=== PATIENT | male | born 1985 | race Caucasian/White ===

== ENCOUNTER 2024-07-31 09:37 | Emergency (ER) | payer SELFPAY ==
[2024-07-31] MEDS ORDERED: HYDROCODONE/APAP 5/325 MG TAB ONE (10:02)
[2024-07-31] MEDS ORDERED: KETOROLAC 30 MG/ML INJ ONE (10:02)
--- NOTE | 2024-07-31 11:03 | RAD REPORT ---
EXAMINATION: ULTRASOUND DUPLEX OF SCROTUM AND TESTICLES CLINICAL INDICATION: Testicular pain TECHNIQUE: Duplex scan of the scrotal contents was performed including real-time color and spectral D oppler ultrasonography with arterial inflow and venous outflow. COMPARISON: No prior exam. FINDINGS: Right testicle measures 5.6 x 2.9 x 2.8 cm with a normal echotexture. Normal blood flow. Left testicle measures 4.2 x 2.7 x 3.3 with a normal echotexture. Normal blood flow. Right epididymis normal in size and echotexture. Normal blood flow The left epididymis is enlarged with increased blood flow. Heterogeneous 2 cm structure is present within the left scrotum. IMPRESSION: Left epididymitis Heterogeneous 2 cm structure present within the left scrotum may represent an extratesticular hematom a.
--- NOTE | 2024-07-31 11:16 | ER ---
Nurse's Notes [facility] Name: Suman Cee Age: 38 yrs Sex: Male : 1985 Arrival Date: 07/31/2024 Time: 09:37 Bed 16 Private MD: Diagnosis: Contusion of scrotum and testes;Epididymitis Presentation: 07/31 09:46 Chief complaint: Patient states: "my dog jumped on my private parts a few days ago and aa5 then I also twisted wrong at work so I've been hurting". Pt reports pain to left testicle. 09:46 Method Of Arrival: Ambulatory aa5 09:46 Coronavirus screen: At this time, the client does not indicate any symptoms associated aa5 with coronavirus-19. Ebola Screen: Patient denies travel to an Ebola-affected area in the 21 days before illness onset. Initial Sepsis Screen: Does the patient meet any 2 criteria? No. Patient's initial sepsis screen is negative. Does the patient have a suspected source of infection? No. Patient's initial sepsis screen is negative. Risk Assessment: Do you want to hurt yourself or someone else? Patient reports no desire to harm self or others. Onset of symptoms was July 2024. 09:46 Acuity: MIKEY 3 aa5 Historical: - Allergies: 09:46 No Known Allergies; aa5 - PMHx: 09:46 None; aa5 - PSHx: 09:46 abdominal sx as an infant; aa5 - Immunization history:: Adult Immunizations unknown. - Infectious Disease History:: Denies. - Social history:: Smoking status: Patient reports the use of cigarette tobacco products. Screenin:53 [facility] Fall Risk Assessment (Adult) History of falling in the last 3 months, tm6 including since admission No falls in past 3 months (0 pts) Confusion or Disorientation No (0 pts) Intoxicated or Sedated No (0 pts) Impaired Gait No (0 pts) Mobility Assist Device Used No (0 pt) Altered Elimination No (0 pt) Score/Fall Risk Level 0 - 2 = Low Risk Oriented to surroundings, Maintained a safe environment, Educated pt \\T\\ family on fall prevention, incl call for assistance when getting out of bed. Abuse screen: Denies threats or abuse. Denies injuries from another. Nutritional screening: No deficits noted. Tuberculosis screening: No symptoms or risk factors identified. Assessment: 10:53 General: Appears in no apparent distress. Behavior is calm, cooperative. Pain: tm6 Complains of pain in groin Pain currently is 6 out of 10 on a pain scale. Neuro: Level of Consciousness is awake, alert, obeys commands, Oriented to person, place, time, situation. Cardiovascular: Patient's skin is warm and dry. Respiratory: Airway is patent Respiratory effort is even, unlabored, Respiratory pattern is regular, symmetrical. GI: No signs and/or symptoms were reported involving the gastrointestinal system. Abdomen is flat, non-distended. : Reports pain scrotum, testicle. EENT: No signs and/or symptoms were reported regarding the EENT system. Derm: No signs and/or symptoms reported regarding the dermatologic system. Musculoskeletal: Reports pain in groin. 11:26 Reassessment: Patient and/or family updated on plan of care and expected duration. Pain tm6 level reassessed. Patient is alert, oriented x 3, equal unlabored respirations, skin warm/dry/pink. Vital Signs: 09:46 BP 147 / 104; Pulse 87; Resp 18 S; Temp 97.5(TE); Pulse Ox 99% on R/A; Weight 70.31 kg aa5 (R); Height 5 ft. 8 in. (R); 10:53 BP 152 / 97; Pulse 88; Pulse Ox 97% on R/A; MAP 112 mmHg; tm6 11:25 BP 148 / 113; Pulse 84; Resp 19; Temp 97.5; Pulse Ox 99% on R/A; MAP 112 mmHg; Pain tm6 0/10; 09:46 Body Mass Index 23.57 (70.31 kg, 172.72 cm) aa5 11:25 Pain Scale: Adult tm6 ED Course: 09:40 Patient arrived in ED. ra3 09:41 Paulo Farr MD is Attending Physician. ec2 09:45 Christine Aiken, SEGUN is Primary Nurse. kc6 09:46 Arm band placed on. aa5 09:51 Triage completed. aa5 10:25 Scrotum Testicles US In Process Unspecified. EDMS 10:39 Nader Keys, RN is Primary Nurse. tm6 10:53 Patient has correct armband on for positive identification. Bed in low position. Call tm6 light in reach. Side rails up X 1. Provided Education on: use of call castillo. Client placed on continuous cardiac and pulse oximetry monitoring. NIBP monitoring applied. Pulse ox on. NIBP on. Door closed. Noise minimized. 11:16 Julien Malik MD is Referral Physician. ec2 11:26 No provider procedures requiring assistance completed. Patient did not have IV access tm6 during this emergency room visit. Administered Medications: 10:33 Drug: HYDROcodone-acetaminophen PO 5 mg-325 mg 2 tabs PO once Route: PO; kc6 11:22 Follow up: Response: No adverse reaction tm6 10:33 Drug: Ketorolac IM 30 mg IM once Route: IM; Site: left deltoid; kc6 11:22 Follow up: Response: No adverse reaction tm6 Medication: 10:53 VIS not applicable for this client. tm6 Outcome: 11:16 Discharge ordered by . ec2 11:26 Patient left the ED. tm6 11:26 Discharged to home ambulatory, with family, tm6 11:26 Condition: stable 11:26 Discharge instructions given to patient, family, Instructed on discharge instructions, follow up and referral plans. medication usage, Demonstrated understanding of instructions, follow-up care, medications, Prescriptions given X 2, Signatures: Dispatcher [employer] Lexy Apple RN RN [id number] Christine Aiken RN RN kc6 Paulo Farr MD MD ec2 Nader Keys RN RN tm6 Barbie Burrell 3
--- NOTE | 2024-07-31 11:16 | EDPHYS ---
Physician Documentation [facility] Name: Suman Cee Age: 38 yrs Sex: Male : 1985 Arrival Date: 07/31/2024 Time: 09:37 Bed 16 Private MD: ED Physician Paulo Farr HPI: 07/31 09:56 This 38 yrs old Male presents to ER via Ambulatory with complaints of ec2 Testicular Pain. 09:56 Patient arrives today for evaluation of left testicular pain. Reports that he had ec2 injured his left testicle when his dog jumped on him several days ago. States that he also twisted abnormally today at work which caused increased pain. Pain with ambulation. Pain with gravity. Patient reports otherwise no other concerns, no chronic medical problems.. Historical: - Allergies: 09:46 No Known Allergies; aa5 - PMHx: 09:46 None; aa5 - PSHx: 09:46 abdominal sx as an infant; aa5 - Immunization history:: Adult Immunizations unknown. - Infectious Disease History:: Denies. - Social history:: Smoking status: Patient reports the use of cigarette tobacco products. ROS: 09:56 Constitutional: as per hpi ec2 Exam: 09:56 Constitutional: GEN: NAD Head: atraumatic Eyes: EOMI Ears: External ears are ec2 normal. CV: regular rate LUNGS: no respiratory distress ABD: non-distended. : Scrotal examination revealing for significant left testicle swelling and TTP, intact cremasteric reflex bilaterally. SKIN: no evidence of rashes MSK: no evidence of trauma Vital Signs: 09:46 BP 147 / 104; Pulse 87; Resp 18 S; Temp 97.5(TE); Pulse Ox 99% on R/A; Weight 70.31 kg aa5 (R); Height 5 ft. 8 in. (R); 10:53 BP 152 / 97; Pulse 88; Pulse Ox 97% on R/A; MAP 112 mmHg; tm6 11:25 BP 148 / 113; Pulse 84; Resp 19; Temp 97.5; Pulse Ox 99% on R/A; MAP 112 mmHg; Pain tm6 0/10; 09:46 Body Mass Index 23.57 (70.31 kg, 172.72 cm) aa5 11:25 Pain Scale: Adult tm6 MDM: 09:55 Medical Screening Exam initiated ec2 09:56 Data reviewed: vital signs, nurses notes. ED course: Patient arrives today for scrotal ec2 pain and swelling with examination revealing for findings as above. Will treat the patient's pain and obtain scrotal ultrasound. Suspect testicular contusion, additionally considered other processes such as torsion, epididymitis. 11:11 ED course: Ultrasound shows hematoma along with epididymitis. Will send patient ec2 antibiotics and instruct him on scrotal support.. 07/31 09:55 Order name: Scrotum Testicles US; Complete Time: 11:11 ec2 Administered Medications: 10:33 Drug: HYDROcodone-acetaminophen PO 5 mg-325 mg 2 tabs PO once Route: PO; kc6 11:22 Follow up: Response: No adverse reaction tm6 10:33 Drug: Ketorolac IM 30 mg IM once Route: IM; Site: left deltoid; kc6 11:22 Follow up: Response: No adverse reaction tm6 Disposition Summary: 07/31/24 11:16 Discharge Ordered Notes: Location: Home ec2 Condition: Stable ec2 Diagnosis - Contusion of scrotum and testes ec2 - Epididymitis ec2 Followup: ec2 - With: Julien Malik MD - When: - Reason: Recheck today's complaints Discharge Instructions: - Discharge Summary Sheet ec2 - Epididymitis ec2 - Scrotal Hematoma ec2 Forms: - Medication Reconciliation Form ec2 - Antibiotic Education ec2 - Prescription Opioid Use ec2 - Patient Portal Instructions ec2 - Leadership Thank You Letter ec2 Prescriptions: - acetaminophen-codeine 300-30 mg Oral tablet - take 1 tablet ORAL route every 6 hours as needed for pain; 10 tablet; Refills: ec2 0, Product Selection Permitted - levofloxacin 500 mg Oral tablet - take 1 tablet ORAL route once daily for 10 days; 10 tablet; Refills: 0, Product ec2 Selection Permitted Signatures: Dispatcher [employer] Lexy Apple RN RN aa5 Christine Aiken RN RN kc6 Paulo Farr MD MD ec2 Nader Keys RN tm6 Corrections: (The following items were deleted from the chart) 10:57 10:57 Urinalysis W/Microscopic+U.LAB.BRZ ordered. EDMS EDMS
[2024-07-31 13:37] VITALS: TEMP 97.5
[2024-07-31 13:40] VITALS: BP 148/113; O2SAT 99
== END 2024-07-31 11:26 | disposition home or self-care (01) ==
LOC: ER 09:37
DX: S30.22XA Contusion of scrotum and testes, initial encounter (principal); N50.812 Left testicular pain; N45.1 Epididymitis; F17.210 Nicotine dependence, cigarettes, uncomplicated; W54.1XXA Struck by dog, initial encounter; Y93.89 Activity, other specified; Y92.9 Unspecified place or not applicable
CPT/HCPCS: 76870; 96372; 99284

== ENCOUNTER 2025-05-02 17:20 | Emergency (ER) | payer SELFPAY ==
--- OUTSIDE RECORDS SUMMARY | 2025-05-02 18:04 | XMS REPORT | Continuity of Care Document ---
Author Name Unknown Address [address] [facility] [place] [address] [facility] [place] Address [address] [facility] [place] [address] Care Team Providers Care Preconstruction Manager Name Role Phone Pcp, Patient Does Not Have A Primary Care Physic susu GUU_SHENG_YAW Attending Clinician Unavailable Yao CAST, Micaela Johnson Attending Clinician Yumiko Stock LVN Attending Clinician [phone] REINA GRIMALDO Attending Clinician Unavail sanjeev Chu MD, Jose Ruiz Attending Clinician + [phone] Jared Sands MD, Victor J Attending Clinician + Reina Grimaldo MD Attending Clinician KENYU_SHENG_YAW Admitting Clinician Unavailable NICOLA COLEMAN JR Admitting Clinician Kathryn Coleman Jr., MD, Victor J Admitting Clinician + Problems Condition Name Condition Details Condition Category Status Onset Date Resolution Date Last Treatment Date Treating Clinician Comments Source Rhabdomyol ysis Rhabdomyol ysis Disease Active 12-20 00:00: 00 [facility] Allergies, Adverse Reactions, Alerts Allergy Name Allergy Type Status Severity Reaction(s) Onset Date Inactive Date Treating Clinician Comments Source NO KNOWN ALLERGIE S Drug Class Active [facility] Social History Social Habit Start Date Stop Date Quantity Comments Source History of tobacco use Cigarette Smoker [facility] Exposure to SARS-CoV-2 (event) 2021-11-22 00:00:00 2021-12-22 10:22:00 Not sure [facility] Alcohol intake 2021-12-22 00:00:00 2021-12-22 00:00:00 Ex-drinker (finding) [facility] Cigarettes smoked current (pack per day) - Reported 2021-12-20 00:00:00 2021-12-20 00:00:00 [facility] Cigarette pack-years 2021-12-20 00:00:00 2021-12-20 00:00:00 [facility] Tobacco use and exposure 2021-12-20 00:00:00 2021-12-20 00:00:00 Never used [facility] Sex Assigned At 1985 00:00:00 1985 00:00:00 [facility] Smoking Status Start Date Stop Date Source Current every day smoker 2021-12-20 00:00:00 [facility] Medications Ordered Medication Name Filled Medication Name Start Date Stop Date Current Medication? Ordering Clinician Indication Dosage Frequency Signature (SIG) Comments Components Source lisinopriL 5 mg tablet 12-25 00:00: 00 03-26 04:59 :00 No [id number] 5mg Take 1 tablet by mouth daily for 90 days. [facility] pantoprazol e 40 mg EC tablet 12-25 00:00: 00 03-26 04:59 :00 No [id number] 40mg Take 1 tablet by mouth daily for 90 days. [facility] pantoprazol e (PROTONIX) EC tablet 40 mg 12-24 16:00: 00 Yes 40mg 40 mg, Oral, DAILY, First dose on Wed12/24/21 at 1100, Until Discontinu ed, Routine [facility] KCL (KLOR-CON M20) tablet 40 mEq 12-24 15:00: 00 12-24 16:09 :00 No 40meq 40 mEq, Oral, Q2H, 1 dose, First dose (after last modificati on) on Wed12/24/21 at 1000, Routine [facility] lisinopriL (PRINIVIL,Z ESTRIL) tablet 5 mg 12-24 14:00: 00 Yes 5mg 5 mg, Oral, DAILY, First dose on Wed12/24/21 at 0900, Until Discontinu ed, Routine [facility] foLIC acid (FOLATE) tablet 1 mg 12-24 14:00: 00 Yes 1mg 1 mg, Oral, DAILY, First dose on Wed12/24/21 at 0900, Until Discontinu ed, Routine [facility] thiamine (VITAMIN B1) tablet 100 mg 12-24 14:00: 00 Yes 100mg 100 mg, Oral, DAILY, First dose on Wed12/24/21 at 0900, Until Discontinu ed, Routine [facility] magnesium sulfate in water 2 gram/50 mL (4 %) infusion 2 g 12-24 14:00: 00 12-24 14:26 :00 No 2g 2 g, IV Piggyback, Administer over 60 Minutes, ONCE, 1 dose, On Wed12/24/21 at 0900, Routine [facility] KCL (KLOR-CON M20) tablet 40 mEq 12-24 13:00: 00 12-24 14:22 :29 No 40meq 40 mEq, Oral, Q2H, 3 doses, First dose on Wed12/24/21 at 0800, Last dose on Wed12/24/21 at 1200, Routine [facility] gadoteridol (PROHANCE-2 0 mL) injection 17.5 mL 12-24 05:30: 00 12-24 05:03 :00 No [id number] .2mL/kg 17.5 mL (0.2 mL/kg ?87.5 kg), Intravenou s, ONCE, 1 dose, On Wed12/24/21 at 0030, Routine [facility] NaCl 0.9% (NS) IV infusion 1,000 mL 12-23 19:45: 00 12-24 12:55 :53 No 1000mL at 150 mL/hr, IV Infusion, CONTINUOUS , Starting on Wed12/23/21 at 1445, Until Wed12/24/21 at 0755, Routine [facility] atropine injection 0.4 mg 12-23 11:37: 35 Yes .4mg 0.4 mg, IV Push, PRN, Starting on Wed12/23/21 at 0637, Until Discontinu ed, Routine, Symptomati c Bradycardi a [facility] KCL (KLOR-CON M20) tablet 40 mEq 12-23 09:54: 00 12-23 11:11 :00 No 40meq 40 mEq, Oral, ONCE, 1 dose, On Wed12/23/21 at 0500, Routine [facility] benzonatate (TESSALON PERLES) capsule 200 mg 12-23 01:00: 00 Yes 200mg 200 mg, Oral, TID, First dose on Wed12/22/21 at 2000, Until Discontinu ed, Routine [facility] guaiFENesin 100 mg/5 mL solution 200 mg 12-22 23:00: 00 Yes 200mg 200 mg, Oral, Q6H WHILE AWAKE, First dose on Wed12/22/21 at 1800, Until Discontinu ed, Routine [facility] acetaminoph en (TYLENOL) tablet 650 mg 12-22 18:53: 08 Yes 650mg 650 mg, Oral, Q6HPRN, Starting on Wed12/22/21 at 1353, Until Discontinu ed, Routine, Pain (scale 1-3), Temp > 38.5 C [facility] NaCl 0.9% (NS) bolus infusion 1,000 mL 12-22 11:30: 00 12-22 13:17 :00 No 1000mL at 999 mL/hr, 1,000 mL, IV Piggyback, ONCE, 1 dose, On Wed12/22/21 at 0630, AMINA [facility] sodium phosphate 15 mmol in NaCl 0.9% (NS) 250 mL piggyback 12-22 11:30: 00 12-22 15:37 :00 No 15mmol 15 mmol, IV Piggyback, ONCE, 1 dose, On Wed12/22/21 at 0630, Administer over 4 Hours, 250 mL [facility] heparin (porcine) injection 5,000 Units 12-21 13:00: 00 Yes 5000U 5,000 Units, Subcutaneo us, Q12H, First dose on Wed12/21/21 at 0800, Until Discontinu ed, Routine [facility] midazolam (VERSED) injection 2 mg 12-21 09:45: 00 12-21 08:40 :00 No 2mg 2 mg, IV Push, ONCE, 1 dose, On Wed12/21/21 at 0445, Routine [facility] vancomycin 1,250 mg in NaCl 0.9% (NS) 250 mL VIAL-MATE IV piggyback 12-21 07:15: 00 12-21 23:54 :13 No 15mg/kg 1,250 mg (rounded from 1,335 mg = 15 mg/kg ?89 kg), IV Piggyback, Q8H ABX, First dose on Wed12/21/21 at 0215, Until Discontinu ed, Administer over 90 Minutes, 250 mL
Reas on for Anti-Infec tive: Empiric Therapy for Suspected Infection< br>Empiric Therapy Site: Blood
D uration of therapy: 7 days [facility] meropenem (MERREM) 1,000 mg in NaCl 0.9% (NS) 50 mL MINI-BAG 12-21 06:04: 00 12-21 23:54 :13 No 1000mg 1,000 mg, IV Piggyback, Q8H ABX, First dose on Wed12/21/21 at 0115, Until Discontinu ed, Administer over 3 Hours, 50 mL
Rest ricted use approved by: [address] FLOOR
R anne-marie for Anti-Infec tive: Empiric Therapy for Suspected Infection< br>Empiric Therapy Site: Blood
D uration of therapy: 7 days [facility] midazolam (VERSED) injection 2 mg 12-21 05:20: 00 12-21 05:23 :00 No 2mg 2 mg, IV Push, ONCE, 1 dose, On 12/21/21 at 0030, Routine [facility] NaCl 0.9% (NS) IV infusion 1,000 mL 12-21 04:15: 00 12-23 19:37 :31 No 1000mL at 200 mL/hr, IV Infusion, CONTINUOUS , Starting on 12/20/21 at 2315, Until 12/23/21 at 1437, Routine [facility] NaCl 0.9% (NS) bolus infusion 500 mL 12-21 03:51: 00 12-21 04:05 :00 No 500mL at 999 mL/hr, 500 mL, IV Piggyback, ONCE, 1 dose, On 12/20/21 at 2300, AMINA [facility] NaCl 0.9% (NS) IV infusion 1,000 mL 12-21 03:15: 00 12-21 04:07 :13 No 1000mL at 125 mL/hr, IV Infusion, CONTINUOUS , Starting on 12/20/21 at 2215, Until 12/20/21 at 2307, Routine [facility] midazolam (VERSED) STD 50mg in NaCl 0.9% (NS) 50 mL infusion RTU 12-21 02:56: 00 12-22 00:16 :57 No 1mg/h 1-10 mg/hr (1-10 mL/hr), IV Infusion, TITRATE, Sedation-R ASS score (0 to -1), Starting on 12/20/21 at 2156
In itiate infusion at 1 mg/hr and titrate by 1 mg/hr every 3 minutes to 10 minutes to goal sedation score. Maximum dose = 10 mg/hr.&nbs p; If goal not maintained at maximum allowed dose, contact prescriber .
[facility] dexMEDEtomi dine 400 mcg in 0.9 % NaCl 100 mL (PRECEDEX) RTU IV infusion 12-21 02:46: 06 12-21 08:39 :23 No .2ug/kg /h 0.2-1.5 mcg/kg/hr ?97 kg (4.85-36.3 75 mL/hr, rounded to 4.85-36.38 mL/hr), IV Infusion, TITRATE, Sedation-R ASS score (0 to -1), Starting on 12/20/21 at 2146
In itiate infusion at 0.2 mcg/kg/hr and titrate by 0.1 mcg/kg/hr every 30 minutes to goal sedation score. Maximum dose = 1.5 mcg/kg/hr. If goal not maintained at maximum allowed dose, contact prescriber .
[facility] propofoL IV infusion 12-21 02:45: 18 12-22 00:16 :57 No 5ug/kg/ min 5-50 mcg/kg/min ?97 kg (2.91-29.1 mL/hr), IV Infusion, TITRATE, Sedation-R ASS score (0 to -1), Starting on 12/20/21 at 2145
In itiate infusion at 5 mcg/kg/min and titrate by 5 mcg/kg/min every 30 seconds to 10 minutes to goal sedation score. Maximum dose = 50 mcg/kg/min . If goal not maintained at maximum allowed dose, contact prescriber . &nbs p;Tubing and unused portions of vials should be discarded after 12 hours.
[facility] Vital Signs Vital Name Observation Time Observation Value Comments S antonia Systolic blood pressure 2021-12-24 16:43:00 145 mm[Hg] [facility] Diastolic blood pressure 2021-12-24 16:43:00 99 mm[Hg] [facility] Heart rate 2021-12-24 16:43:00 82 /min [facility] Body temperature 2021-12-24 16:43:00 36.5 Mabel [facility] Respiratory rate 2021-12-24 16:43:00 18 /min [facility] Oxygen saturation in Arterial blood by Pulse oximetry 2021-12-24 16:43:00 96 /min [place] [facility] Body weight 2021-12-22 03:00:00 87.544 kg [facility] BMI 2021-12-22 03:00:00 28.50 kg/m2 [facility] Body height 2021-12-21 01:30:00 175.3 cm [facility] Procedures Procedure Date / Time Performed Performing Clinician Source MAGNESIUM 2021-12-24 13:35:00 Paul Escalante [facility] BASIC METABOLIC PANEL (NA, K , CL, CO2, GLUCOSE, BUN, CREATININE, CA) 2021-12-24 13:35:00 Paul Escalante [facility] MAGNESIUM 2021-12-24 09:56:00 Santy [facility] BASIC METABOLIC PANEL (NA, K , CL, CO2, GLUCOSE, BUN, CREATININE, CA) 2021-12-24 09:56:00 Santy [facility] MR BRAIN W WO CONTRAST 2021-12-24 05:10:00 Santy [facility] PHOSPHORUS 2021-12-23 08:45:00 [facility] CREATINE KINASE 2021-12-23 08:45:00 Paul Escalante [facility] MAGNESIUM 2021-12-23 08:45:00 Santy [facility] VITAMIN B12, LEVEL 2021-12-23 08:45:00 Santy [facility] FOLATE 2021-12-23 08:45:00 Santy [facility] BASIC METABOLIC PANEL (NA, K , CL, CO2, GLUCOSE, BUN, CREATININE, CA) 2021-12-23 08:45:00 Boris Paul [facility] CBC WITH DIFF 2021-12-23 08:45:00 Santy [facility] HEPATITIS C VIRUS (HCV) BY QUANTITATIVE NAAT 2021-12-23 08:45:00 Jagjit Jenkins [facility] ELECTROENCEPHALOGRAM 2021-12-23 00:00:00 Wade Garcia [facility] POCT GLUCOSE (AUTOMATED) 2021-12-22 16:48:00 Jose Chu [facility] CT HEAD WO CONTRAST 2021-12-22 15:04:47 Jagjit Jenkins [facility] CT CERVICAL SPINE WO CONTRAST 2021-12-22 15:04:24 Jagjit Jenkins [facility] FECAL PATHOGENS BY PCR 2021-12-22 13:58:00 Jagjit Jenkins [facility] PHOSPHORUS 2021-12-22 08:02:00 Jagjit Jenkins [facility] CREATINE KINASE 2021-12-22 08:02:00 Yamel Murillo [facility] MAGNESIUM 2021-12-22 08:02:00 Yamel Murillo [facility] BASIC METABOLIC PANEL (NA, K , CL, CO2, GLUCOSE, BUN, CREATININE, CA) 2021-12-22 08:02:00 Yamel Murillo [facility] CBC WITH DIFF 2021-12-22 08:02:00 [facility] GLYCOSYLATED HEMOGLOBIN (A1C) 2021-12-22 08:02:00 Christa Solomon [facility] POCT GLUCOSE (AUTOMATED) 2021-12-22 05:53:00 Jose Chu [facility] POCT GLUCOSE (AUTOMATED) 2021-12-21 22:16:00 Jose Chu [facility] CYTO SPINAL FLUID 2021-12-21 17:51:00 Christa Solomon [facility] CREATINE KINASE 2021-12-21 16:52:00 Yamel Murillo [facility] HEPATIC FUNCTION PANEL ([id number]) (ALB,T.PRO,BILI T,BU/BC,ALT,AST,ALK PHOS) 2021-12-21 16:52:00 Jagjit Jenkins [facility] BASIC METABOLIC PANEL (NA, K , CL, CO2, GLUCOSE, BUN, CREATININE, CA) 2021-12-21 16:52:00 Yamel Murillo [facility] IRON PANEL 2021-12-21 16:52:00 Paul Escalante [facility] ANTI-NUCLEAR ANTIBODY SCREEN 2021-12-21 16:52:00 Christa Solomon [facility] POCT GLUCOSE (AUTOMATED) 2021-12-21 16:52:00 Jose Chu [facility] EXTRA TUBE SST 2021-12-21 16:52:00 Nicola Coleman [facility] GALV ONLY - SYPHILIS IGG/IGM 2021-12-21 16:52:00 Christa Solomon [facility] ANTI-NUCLEAR ANTIBODY-PATHOLOGIST INTERPRETATION 2021-12-21 16:52:00 Christa Solomon [facility] US ABDOMEN LIMITED 2021-12-21 14:30:33 Christa Solomon [facility] AC PANEL 20 + LACTIC ACID 2021-12-21 13:49:00 Christa Solomon [facility] POCT GLUCOSE (AUTOMATED) 2021-12-21 10:57:00 Jose Chu [facility] MENINGITIS/ENCEPHALITIS PANE L BY PCR 2021-12-21 05:55:00 Radha Flood [facility] CEREBROSPINAL FLUID PROTEIN 2021-12-21 05:51:00 Christa Solomon [facility] CEREBROSPINAL FLUID GLUCOSE 2021-12-21 05:51:00 [facility] BODY FLUID DIRECT COUNT 2021-12-21 05:51:00 [facility] CSF CULTURE 2021-12-21 05:51:00 Christa Solomon [facility] POCT GLUCOSE (AUTOMATED) 2021-12-21 04:22:00 Jose Chu [facility] SERUM DRUG (IMMUNOASSAY) - COMPREHENSIVE DRUG SCREEN 2021-12-21 04:04:00 Christa Solomon [facility] HEPATITIS B SURFACE ANTIBODY 2021-12-21 04:04:00 Christa Solomon [facility] HEPATITIS B SURFACE ANTIGEN 2021-12-21 04:04:00 Christa Solomon [facility] HCV ANTIBODY 2021-12-21 04:04[facility] IGM 2021-12-21 04:04[facility]00 [facility] VIRUS (HCV) BY QUANTITATIVE NAAT 2021-12-21 04:04:00 Christa Solomon [facility] HIV 1/2 AG-AB WITH REFLEX 2021-12-21 04:04:00 Juanito [facility] XR CHEST 1 VW 2021-12-21 03:40:00 Juanito [facility] BLOOD CULTURE SCREEN 2021-12-21 03:26:00 Juanito [facility] URINE DRUG (IMMUNOASSAY) - COMPREHENSIVE DRUG SCREEN 2021-12-21 03:26:00 Juanito [facility] URINALYSIS 2021-12-21 03:26:00 Juanito [facility] URINE DRUG (LCMSMS) - SYNTHETIC OPIATES PANEL 2021-12-21 03:26:00 Juanito [facility] BLOOD CULTURE SCREEN 2021-12-21 03:25:00 Juanito [facility] AC PANEL 20 + LACTIC ACID 2021-12-21 03:24:00 Juanito [facility] HB ECG ROUTINE & RHYTHM STRIP 2021-12-21 03:00:50 Juanito [facility] COVID-19 (ID NOW RAPID TESTING) 2021-12-21 02:51:00 Juanito [facility] LAB ONLY COVID INTERPRETATION 2021-12-21 02:51:00 Juanito [facility] PHOSPHORUS 2021-12-21 02:48:00 Juanito [facility] LACTATE DEHYDROGENASE 2021-12-21 02:48:00 Juanito [facility] CREATINE KINASE 2021-12-21 02:48:00 Juanito [facility] MAGNESIUM 2021-12-21 02:48:00 Juanito [facility] FERRITIN SERUM 2021-12-21 02:48:00 Juanito [facility] VITAMIN B12, LEVEL 2021-12-21 02:48:00 Juanito [facility] FOLATE 2021-12-21 02:48:00 Juanito [facility] HEPATIC FUNCTION PANEL (45504) (ALB,T.PRO,BILI T,BU/BC,ALT,AST,ALK PHOS) 2021-12-21 02:48:00 Juanito [facility] BASIC METABOLIC PANEL (NA, K , CL, CO2, GLUCOSE, BUN, CREATININE, CA) 2021-12-21 02:48:00 Christa Solmoon [facility] CBC WITH DIFF 2021-12-21 02:48:00 Christa Solomon [facility] PROTHROMBIN TIME / INR 2021-12-21 02:48:00 Christa Solomon [facility] ACTIVATED PARTIAL THRMPLAS MELVA 2021-12-21 02:48:00 Christa Solomon [facility] Encounters Start Date/Time End Date/Time Encounter Type Admission Type Attending [facility] Facility Care Department Encounter ID Source 2023-12-09 00:00:00 2023-12-09 00:00:00 Outpatient GUU_SHENG_Y [facility] [id number] [facility] 2022-02-25 00:00:00 2022-02-25 00:00:00 Patient Outreach Micaela Samayoa [facility] [id number] [facility] 2022-02-24 00:00:00 2022-02-24 00:00:00 Patient Outreach Micaela Samayoa MITZI ROBERSON [id number] [id number] [id number] [facility] 2021-12-26 00:00:00 2021-12-26 00:00:00 Patient Outreach Micaela Smaayoa [facility] ROBERSON [id number] [id number] [id number] [facility] 2021-12-25 00:00:00 2021-12-25 00:00:00 Transition of Care Yumiko Stock [id number] [id number] [id number] [facility] 2021-12-25 00:00:00 2021-12-25 00:00:00 Transition of Care Yumiko Stock 1..840.114 [id number] 4.2.7.2.686 [id number] [facility] 2021-12-20 20:29:00 2021-12-24 17:56:00 Inpatient U REINA GRIMALDO [facility] [id number] [facility] 2021-12-20 20:29:00 2021-12-24 17:56:00 Hospital Encounter Jose Chu, Reina Bell [facility] 1..840.114 350.1.13.10 4.2.7.2.686 [id number] [facility] Results Test Description Test Time Test Comments Results Result Co mments Source [facility] (NA, K, CL, CO2, GLUCOSE, BUN, CREATININE, CA)2021-12-24 14:15:49* Test Item Value Reference Range Interpretation Comme nts NA (test code = 5350886651) 140 mmol/L 135-145 K (test code = 6741647183) 3.4 mmol/L 3.5-5.0 L Slight hemolysis CL (test code = 3183522577) 111 mmol/L 98-108 H CO2 TOTAL (test code = 5844299272) 22 mmol/L 23-31 L AGAP (test code = 6527007373) 2-16 BUN (test code = 7094534351) 5 mg/dL 7-23 L Slight hemolysis GLUCOSE (test code = 7736715312) 97 mg/dL 70-110 CREATININE (test code = 7773194010) 0.52 mg/dL 0.60-1.25 L CALCIUM (test code = 7115084073) 7.6 mg/dL 8.6-10.6 L eGFR (test code = 0031223169) mL/min/1.73m2 MARK ANTHONY (test code = MARK ANTHONY) Association of Glomerular Filtration Rate (GFR) and Staging of Kidney Disease* + -----+ --------+ +| GFR (mL/min/1.73 m2) ?| With Kidney Damage ?| ?Without Kidney Damage+ +------- +---- --+| ?>90 ?| ?Stage one ?| ? Normal ?+ ------+ ---------+--------- +| ?60-89 ?| ?Stage two ?| ? Decreased GFR ? + -----+ --------+ +| ?30-59 ?| ?Stage three ?| ? Stage three ? + -----+ --------+ +| ?15-29 ?| ?Stage four ? | ? Stage four ?+ ------+ ---------+--------- +| ?<15 (or dialysis) ? ?| ?Stage five ? | ? Stage five ?+ ------+ ---------+--------- + *Each stage assumes the associated GFR level has been in effect for at least three months. ?Stages 1 to 5, with or without kidney disease, indicate chronic kidney disease. Notes: Determination of stages one and two (with eGFR >59mL/min/1.73 m2) requires estimation of kidney damage for at least three months as defined by structural or functional abnormalities of the kidney, manifested by either:Pathological abnormalities or Markers of kidney damage (including abnormalities in the composition of the blood or urine or abnormalities in imaging tests). Lab Interpretation (test code = 03004-0) [facility]normal [facility]OLIC [facility] (NA, K, CL, CO2, GLUCOSE, BUN, CREATININE, CA)2021-12-24 12:54:14* Test Item Value Reference Range Interpretation Comme nts NA (test code = 4361663652) 143 mmol/L 135-145 K (test code = 5194053478) 2.4 mmol/L 3.5-5.0 LL CL (test code = 1037108824) 118 mmol/L 98-108 H CO2 TOTAL (test code = 7739544167) 22 mmol/L 23-31 L AGAP (test code = 1235991360) 2-16 BUN (test code = 3373790317) 5 mg/dL 7-23 L GLUCOSE (test code = 5921914169) 89 mg/dL 70-110 CREATININE (test code = 4987639239) 0.47 mg/dL 0.60-1.25 L CALCIUM (test code = 4362272711) 6.0 mg/dL 8.6-10.6 L eGFR (test code = 9426291655) mL/min/1.73m2 MARK ANTHONY (test code = MARK ANTHONY) Association of Glomerular Filtration Rate (GFR) and Staging of Kidney Disease* + --+ --+ ------+| GFR (mL/min/1.73 m2) ?| With Kidney Damage ?| ?Without Kidney Damage+ --------+ --------+ +| ?>90 ?| ?Stage one ?| ? Normal ?+ ---+ ---+ -------+| ?60-89 ?| ?Stage two ?| ? Decreased GFR ? + --+ --+ ------+| ?30-59 ?| ?Stage three ?| ? Stage three ? + --+ --+ ------+| ?15-29 ?| ?Stage four ? | ? Stage four ?+ ---+ ---+ -------+| ?<15 (or dialysis) ? ?| ?Stage five ? | ? Stage five ?+ ---+ ---+ -------+ *Each stage assumes the associated GFR level has been in effect for at least three months. ?Stages 1 to 5, with or without kidney disease, indicate chronic kidney disease. Notes: Determination of stages one and two (with eGFR >59mL/min/1.73 m2) requires estimation of kidney damage for at least three months as defined by structural or functional abnormalities of the kidney, manifested by either:Pathological abnormalities or Markers of kidney damage (including abnormalities in the composition of the blood or urine or abnormalities in imaging tests). Lab Interpretation (test code = 36986-0) [facility] 12:41:20* Test Item Value Reference Range Interpretation Comme nts MAGNESIUM (test code = 3349990849) 1.5 mg/dL 1.7-2.4 L Lab Interpretation (test cod e = 10816-6) [facility]normal [facility], [id number] 21:36:30* Test Item Value Reference Range Interpretation Comme nts VIT B12 (test code = 6460790656) 681 pg/mL 240-930 MARK ANTHONY (test code = MARK ANTHONY) Biotin has been reported to cause a positive bias, interpret results relative to patient's use of biotin. Lab Interpretation (test code = 59810-4) Normal [facility] 16:28:12* Test Item Value Reference Range Interpretation Comme nts FOLATE SER (test code = 3321711040) 16.1 ng/mL 3.0-20.0 Lab Interpretation (test cod e = 94578-3) Normal [facility] [id number] 15:47:46* Test Item Value Reference Range Interpretation Comme nts CK (test code = 1624271320) 4092 U/L 33-194 H Lab Interpretation (test cod e = 37638-2) Abnormal [facility] SPINAL [id number] 15:20:45* Test Item Value Reference Range Interpretation Comme nts Case Report (test code = 6536401633) Non-Gynecologic Cytology ?Case: [id number] ?Authorizing Provider: ?Jose Chu MD ? ?Collected: ? 12/21/2021 1251 ?Ordering Location: ? ? Medical Intensive Care ? ? Received: ?12/21/2021 0115 ? Unit ([facility] [address]) ?Specimen: ? ?CEREBRAL SPINAL FLUID ? Final Diagnosis (test code = 2154609456) p4oxtNYuHXJqi4qkLQGla GFuZzEwMzNcZnRuYmpcdW MxIHtccnRmMVxlcGljOTY zEFjluiGmSWPzeQVmA4Ox yivzLOipKG4nWR2aoEizy GEpyRXlNCHdOuPzl2lji5 53yKFvo7yqSEVVqtecoIy 4yXjlR19qt1P0OujyE43u pELqNKX1AKIjOVDpaCUoS GFiUHT4SVHkoUKeT2roQU AgMN4mdviwBFqvYTgyWJD xkRA3VOGugCQoC0XwUXXk UYvpORGemqj8LqRhHe1qi GVyeTcyMFxwYXJkXHBsYW luXGZzMjBccGFyXGIgQS4 gW5DLGSXOY5LOGF6XKLUU TFVJRDpccGFyICAgICAgL QFCEWbBLKaQAOTQJ0CxEH GCLNaTTH7UBBTPMHtMLOs WMPBxP94BKZBOMRvncMMn XGIwICBccGFyXGZzMjIgS pLjzSUfZ2WyLJDvV9hrHA 8HJLH0PlI7PqOtHzCrXJM mDjQ5JVLSPLYmjfwffiFu LMSswy05ZNH4QmKhm8G7C GNeTmWzWTYpVH6kzJwwIE KnRD1sPTJsH7oxdV3unzf 0TnYiAZEkIiX4XYGrkvP0 Ckk2QKXrHDrni0nvl2GoM 0JkbPJhcSn7f6fjBBHgUa X6gZOgCArfN9aeqiLjbCS dZXMoYGf2wKcsQzOdAVUo n8vwtsKwYmSpZYBxAPEmK QJxzEtymug0iY10NTKpvB 3kfFWzSQswqzIuCwW5ZDm fBCMtRaJ1UFZjzUPpUBAu F0xeOFLaKJxpNCDwGNqrf RYpLSE6gAulq5F7nPFrzQ PhpZatTkZhDyCgQZFIc6L hNYt2yPouY4ZnMFNdCoS9 bHQgUGFyYWdyYXBoIEZvb gR8oF35GAqoevY2pXHbk1 Lmw53ek632hE1ihSEeCKY 1JJKeXSJwhLYcGNSzCTZ2 EQNufFOrX8skTRLiZL4xg egfGSomLOtiUAKalVJ8XP WeoXPdA2QqMCIcCBjzBQI dzvf2BiLkDp8tqISrxKqp NNfad4wsj8qdbEOwWsz0P DBbXaHjZpanSIbxa3Vyx9 yqMPSknr4uCWL8oWWnzYz co2Y5kXNiDAJgvXDtlbLu IGClDeC6JLabTT0aqi41H EHwPKW3la1ktETwbGpsuq RuaLJlOXadP5MbICOeh74 0JACaW8QoNEErl9D0kxTr LsEeRYMajDC1cfK0EOUrC Hv4kBUqvdS2rcZkbDAvS5 viwH8oBGVaXD0urrbwv8d kUHtjJCxpDYAouMT1jbL2 PKHgsKVsK6AzkA1kYSYzR LbhNPHumcv0IrGsKo6jrP VyeTcyMFxzYmtwYWdlXHB nbmNvbnRccGduZGVjXHBs YWluXHBsYWluXGYwXGZzM hXejKsyrQbpbZ0tAeOgIk QcITvlEY5rCLCcD4tcuTA zRIRmJUPeD4keTaActC6x aFxmMVxjZjJcZnMyMFxwY XIgSSBoYXZlIHBlcnNvbm CngMwugnZ8nWC8NMKjFOa kBAExKNFuwMTkqw8ujJao SAEiMC0mOKXmiwXrUTbxv PprHVchSQT1HEQzjPHuxA MgbWFkZSBieSByZXNpZGV ckTBsETKvfXlgh2Iqt1Qy yCB7fO9lj2fjd9EeAXCcz EU1CU36qcC1jE1uQVJmDY 4pNITrDD0meYCevOXpFOE fy17zvBbtphKiENHimhIg XHBsYWluXGYyXGZzMjhcb GFuZzEwMzNcaGljaFxmMl uvAvSwLAEtAXhtJ7mwQzL pUqXaGCkjJHN0nW== Final Diagnosis Comment (test code = 1929615569) w9iznOLvBYXyfCG5RhLdD UIvd0ebr5JlbVDgsVHgKQ tsbNThdwRtko25mVM4pE5 7WZ4mZFIbNwW5TLMluaU6 Xno5WXCvFIBlsKAoV617v 7sjx8dnvoOezWH3jBwyCI JeiovrPtM1FIizTLMfcnz dCFe5PYzhYCDstWY0DNPz cSOgI5QoIWKkUM0xuzf8I JE8NAnpCBRkDzB3OAEkzW RsJPWtvUnfPXznx739JYO 2YgIdBYYytiGdjKindC6t FuBuJKjnYENcG0o0u0Wla U2hS18tlGZolmDuH0TziE PhjI1zoZ1ciRHoxgVrfmV kwL7re9Q5fOCuTzMHcnOh DYzeJ23hovOiA2DagDWgP RMtFGSbDT2mBPBlka8= Clinical Information (test code = 3074763035) AMS Gross Description (test code = 2064948420) t9vmgMFyQENkxDFTJLPsX tfivuFtFFYjeTJzI6Cmnp cePRpeLN8bKL6rsPxlpRI wjTGsTM5VRXYtTrGpQICi cGVydzEyMjQwXHBhcGVya PH2FQQxBQ0uwrlbVXhaZN ieMVUtkrN5XDWiiQYnF8F mZJCgAN9gkoalZQW4HGiu mV8wvqQQUftvGp6ogMAuh HtcZjFcZmNoYXJzZXQwXG UkyLfeSYWjNFn6mZ4ZVae aFVS5MWQNJepvGAZvMY9Y m3hpTEEkpHBaJHC9YXkkv KCbEQUsMHNfDBy2XYDmIU jqoRBvOI0zrFszPytytSb bp4EdbMOcHCarKJYdXAUo MDxvMTCtGR3MViKjUVqQS AsoOLg7YuC5ZHd0XBETSb XvLwEnKGi6RES0AYXnCMa 5HCb5DXzVOaSbAFQ0WJU1 HnywHXE7TqT7CCqdzUFaJ FxcZiBBcmlhbCBcXGZzID FfKMjzZzybUGhgX62tdMy oxM0vKzHgHTloVIGjQMzx qIlrhB1aYPZtW98wi6HPy 7MhXO2GZZr8oaCujjnmtY 6eWKUonnYzOSqyiODrS0t lIzAuNdvwEDVjYInWBU0l JAUQGtWMZo2CWGsZDRsaG ovICFNojWYgDL0VRsUdPK v7TPWfUjNlh8nebEVjRm2 1DEQmG1Ons8ShM0riQRFt Rci0vIGngsUqUCs5QAYxi HKgDZ9MSQLrfUHtXFUfZz XkdSjlUENoZSU3bI7ofRa rMYArWNEitfY9jA0qxxcu RAVGc86xqi07o7z5YUTsX CAxIFBhcGFuaWNvbGFvdS BzdGFpbmVkKVxwYXIgDQp eaQhmrK9vUQPlK08cl9PM k0LxWOKvSDmxk3zfdVwes 2VjdGVuZFxwYXJccGFyZF embU4aHjGah6kuqOy2SEq gojA1AVPdwc0EMgykxU6w PfQht7sjgRz7POMXAlzrb yK6w2hrzCdgv7SwpOFmGY 0NCn0= Disclaimer (test code = 2379746710) u8ffsLRlQGYuh6iwQTQng GFuZzEwMzNcZnRuYmpcdW VoTSjffvCrGUhzh9DoP1F yMjAwMFxhbnNpXGRlZmxh dahqYIAmJPX8nwIqJJWdJ TqkXISqCDnxMg2ylOHghR xoReRgLWGji3utggHEPBc xSuVaQ883QUMsJAprl7xd j1MlHFGveBZcs6O2MYQYg alkrWz2qLdyG26pd0E0Co yzT4hmUSKkEFWqW3XkGI5 aDUHpVxw7VBE4GRT9VHAf WFUwR9FsMG6yVWRpoKRiE Ez2w5fdgEwjWQZdGXJ4v2 nqHUvwhsJvUK0ijw9tgIp 7s4gtndZlNJRuJOZalNZT YEFiY6PtnGqyVy3ofKi5e LylHgjxRKN7Jib7PV5tav 69ipl2wZrjJMOmbcjbLdG 4FUmxGLTanzloXHt2EStv BXGxbKG2QTNjsYLgC4GkT JNkAU9mzzt1CFZ6EFpdAS DtKeN7ARVflTVlBIZbiAe lDWwnx136KIW1LbKhEM2v Q9Zwj9B0wE3szENpBKEci EHkTgBrMLWvjw6cvLCaTJ wsu2OfEVG5ffP9sTLzfID rXFZtFE52Yqbxn2QrJagz g6HjS38ihPV3BIyhe5hpX V5gFdL7ihDaESvga3ueuT 9vZcV7TMehWK2xEK1pJYU jaX2iahlqPRCmHmWgwblv JTHdvQuxepTeDa1yoQxuN NJ1ZMriY8nmwY6pRaF2KC iwA4uajT3aTRj7RFpbaNC 4CBMrcJ6eZZ6egbsfn1dq TSvyEAygPGUjxmO3xdS1H YUmvXLpW3XhdC3sMCYdPQ 5zhrncs7qqATJ6BGrmCEL zLPH0WnIrAGXyl4Prjhy1 KcKew3QtjDRrAYobB53mb 345TDVjakRxD8snwPJmet wyhENbjysmLUmbstD2SUI vxbMvt5DmOPWgQWE9GXou LXhcqIPpSBMgwOeld3quG 3RscGFyXHBsYWluXGYxXG ZzMjBcbGFuZzEwMzNcaGl jaFxmMVxkYmNoXGYxXGxv U7mnYbCvQ3CuFYNkMrAxo ZYyO7aoUQfjzfPbBYAdmn MluTN7UPxpX6e3QURyicR nrIg5reJqRvBrGTPkIAS2 XHqtzDHgDWIrm3Csbnltw XSnQl1yiZKlTDUnmS1sSB UvCOWwQKvcIW0nmXr9HZX GgMQyfQMzGaVFTEWwIG67 iqLaORASaxkec6Y2JVbgT XVoy6RcvGXqY9mwh9ZwXX Mas28hJI3hz4J6x8uvNLX 0UV0zw9QrGZCkcOKcsTBc KMEdt3Hypwvic6OuJBWje cFpg9XuGZKvkzTjhRCfAR KbhzMhdj9dtfHfBXGyEPJ xM7KbnqhdmEdvutQtGEVs gy7libXaVDD5PGEWQEZcA HQng7LhnQ7liIZASVQ3qC Wsqs7xjqMFrDAtWYNeca9 1RGOmZP4oV2nuDRQrDRFb aeVftBWlb8KtLVWdlOC4o DXmZG1WEiAZg99pFUKgEO ZFunZlASFmkOuopGT4laW 6cF8eRMpBHLFoOnw+IFRo VAMOCWIgFI0yoeQzk0Jmb vSbpChyUYQytFVop7KhpY Esz9VbaAfwo1YjwSFkuQZ fPH9tHSUsnkkkITVnSKQI QkAWFKVqbcT7p2DuOAEuC CTkVPF2fWruwnn3CWQleA 6oYHCmF7hvmvpeQEqnYZT ng9CmmO5wuYIQjVTsc9Zl uVItrLMVdZWdGM3butRcA QnVCIfFMAF3dzYaSATeq2 FxROecO2kxG85xlOmhkBq 5hRF8NIV6eS4bIli+IFxw YXJccGFyIEFwcHJvcHJpY JEngGpzlhSyA5NoatPpvF 3tsGEdymWuSC7nPH6xL5H 3cYGrEXAtizIio5eeGHec dmUgYmVlbiByZXZpZXdlZ HMuh4HjFJnfYYU8DRxhyo BpbmNsdWRpbmcgSCZFLCB XcVKpbRDuGIJ2KOwaauAj xsZaEP0jdA5ldYwqtS2ab WNrjVM7cyrnIWSoGTBaeP tmZKSaUL7jnDUjDZSmuuV WnFzopULcdW6zS6QpFKLm INIwoc6xFAJgfV6pRLlas 2VydmljZXMgYXJlIHBlcm Zcpx4sXRHyhARTOJ6RTCe eiOLwd1EehfIoX5jSXBL3 NUQwNjYwMjgxKSBleGNlc ZMvXFZoei07AOYafO8dmU txNYQclO5zwH8gyPzrnY6 zDwRaRdVbOTgeXS3vXZNo Z7jcvWKjLEXfTBRsL4egE sYniB6koMkoNWipHhMuUg WoEVttNPG0aV== Embedded Images (test code = 7169389579) [facility] BY QU[facility]ITATIVE NAAT 2021-12-23 13:18:03* Test Item Value Reference Range Interpretation Comme nts HCV Quantitative NAAT - log IU/mL (test code = 44851-2) Not Detected log IU/mL HCV Quantitative NAAT - IU/mL (test code = 59710-2) Not Detected IU/mL HCV Quantitative Interpretation (test code = 5948064847) Detected Not Detected A MARK ANTHONY (test code = MARK ANTHONY) The Aptima HCV Jaspal nt Dx assay is an FDA-approved real-time auto garage mechanic-mediate d amplification (TMA) test used for both detection and quantitation of hepatitis C virus (HCV) RNA in human serum and plasma from HCV-infected individuals. ?It is intended for use as an aid in the diagnosis of active HCV infection and the management of HCV-infected patients undergoing HCV antiviral drug therapy. ?It is not approved for use as a screening test for the presence of HCV RNA in blood or blood products. The quantitative range of this assay is 1.00 - 8.00 log IU/mL or 10 - 100,000,000 IU/mL. An interpretation of "Not Detected" does not rule out the presence of inhibitors in the patient specimen or HCV RNA concentration below the level of detection of the test. ?Care should be taken when interpreting any single viral load determination. Detected, not Quantifiable: HCV RNA detected, but at a level below 10 IU/mL (1.0 log IU/mL). ?HCV RNA concentration is below the lower limit of quantitation of the assay. Indeterminate: Error indicated in the generation of the result. ?Please submit a new specimen for repeat testing if clinically indicated. Lab Interpretation (test code = 16623-6) Abnormal [facility] METABOLIC PANEL (NA, K, CL, CO2, GLUCOSE, BUN, CREATININE, CA)2021-12-23 09:46:57* Test Item Value Reference Range Interpretation Comme nts NA (test code = 7694430349) 139 mmol/L 135-145 K (test code = 0222467318) 3.2 mmol/L 3.5-5.0 L CL (test code = 8586753359) 111 mmol/L 98-108 H CO2 TOTAL (test code = 8955933214) 24 mmol/L 23-31 AGAP (test code = 5664082600) 2-16 BUN (test code = 4526821818) 6 mg/dL 7-23 L GLUCOSE (test code = 5607680927) 89 mg/dL 70-110 CREATININE (test code = 8158670240) 0.54 mg/dL 0.60-1.25 L CALCIUM (test code = 1390151512) 7.0 mg/dL 8.6-10.6 L eGFR (test code = 4175239844) mL/min/1.73m2 MARK ANTHONY (test code = MARK ANTHONY) Association of Glomerular Filtration Rate (GFR) and Staging of Kidney Disease* + --+ --+ ------+| GFR (mL/min/1.73 m2) ?| With Kidney Damage ?| ?Without Kidney Damage+ --------+ --------+ +| ?>90 ?| ?Stage one ?| ? Normal ?+ ---+ ---+ -------+| ?60-89 ?| ?Stage two ?| ? Decreased GFR ? + --+ --+ ------+| ?30-59 ?| ?Stage three ?| ? Stage three ? + --+ --+ ------+| ?15-29 ?| ?Stage four ? | ? Stage four ?+ ---+ ---+ -------+| ?<15 (or dialysis) ? ?| ?Stage five ? | ? Stage five ?+ ---+ ---+ -------+ *Each stage assumes the associated GFR level has been in effect for at least three months. ?Stages 1 to 5, with or without kidney disease, indicate chronic kidney disease. Notes: Determination of stages one and two (with eGFR >59mL/min/1.73 m2) requires estimation of kidney damage for at least three months as defined by structural or functional abnormalities of the kidney, manifested by either:Pathological abnormalities or Markers of kidney damage (including abnormalities in the composition of the blood or urine or abnormalities in imaging tests). Lab Interpretation (test code = 68734-5) [facility] 09:46:57* Test Item Value Reference Range Interpretation Comme nts PHOSPHORUS (test code = 1581323484) 1.9 mg/dL 2.5-5.0 L Lab Interpretation (test cod e = 87733-0) [facility] 09:46:57* Test Item Value Reference Range Interpretation Comme nts MAGNESIUM (test code = 5978372114) 1.9 mg/dL 1.7-2.4 Lab Interpretation (test cod e = 67799-6) [facility] [id number] 09:24:11* Test Item Value Reference Range Interpretation Comme nts WBC (test code = 6690-2) See_Comment [Automated messa ge] The system which generated this result transmitted reference range: 4.20 - 10.70 10*3/?L. The reference range was not used to interpret this result as normal/abnormal. RBC (test code = 789-8) See_Comment L [Automated messa ge] The system which generated this result transmitted reference range: 4.26 - 5.52 10*6/?L. The reference range was not used to interpret this result as normal/abnormal. HGB (test code = 718-7) 11.1 g/dL 12.2-16.4 L HCT (test code = 4544-3) 33.4 % 38.4-49.3 L MCV (test code = 787-2) 90.3 fL 81.7-95.6 MCH (test code = 785-6) 30.0 pg 26.1-32.7 MCHC (test code = 786-4) 33.2 g/dL 31.2-35.0 RDW-SD (test code = 33950-5) 41.9 fL 38.5-51.6 RDW-CV (test code = 788-0) 13.0 % 12.1-15.4 PLT (test code = 777-3) See_Comment [Automated messa ge] The system which generated this result transmitted reference range: 150 - 328 10*3/?L. The reference range was not used to interpret this result as normal/abnormal. MPV (test code = 28721-0) 9.9 fL 9.8-13.0 NRBC/100 WBC (test code = 4108592673) See_Comment [Automated [employer] ssage] The system which generated this result transmitted reference range: 0.0 - 10.0 /100 WBCs. The reference range was not used to interpret this result as normal/abnormal. NRBC x10^3 (test code = 7822026849) <0.01 See_Comment [Automated messa ge] The system which generated this result transmitted reference range: 10*3/?L. The reference range was not used to interpret this result as normal/abnormal. GRAN MAT (NEUT) % (test code = 770-8) 67.7 % IMM GRAN % (test code = 7445802843) 0.70 % LYMPH % (test code = 736-9) 20.5 % MONO % (test code = 5905-5) 9.5 % EOS % (test code = 713-8) 1.0 % BASO % (test code = 706-2) 0.6 % GRAN MAT x10^3(ANC) (test code = 4821729566) 7.13 10*3/uL 1.99-6.95 H IMM GRAN x10^3 (test code = 8987314278) 0.07 10*3/uL 0.00-0.06 H LYMPH x10^3 (test code = 731-0) 2.15 10*3/uL 1.09-3.23 MONO x10^3 (test code = 742-7) 1.00 10*3/uL 0.36-1.02 EOS x10^3 (test code = 711-2) 0.10 10*3/uL 0.06-0.53 BASO x10^3 (test code = 704-7) 0.06 10*3/uL 0.01-0.09 Lab Interpretation (test code = 03606-2) Abnormal [facility] CenterANTI[facility]CLE[facility] ANTIB[facility]-PATHOLOGIST [id number] 22:45:21ANA - Pathologist InterpretationANA HEp-2 IIFA Pathologist Interpretation Report Patient Name: Suman Evangelista ? ?Antinuclear Antibody (MACIEL) Test (Anti-Cell Antibodies Test) Indirect Im munofluorescence Assay on HEp-2 Cells Screening titer: 1:80 (adults, > 18 years old), 1:40 (pediatrics, <= 18 years old)?Result: The antinuclear antibody (MACIEL) screen is negative on interpretation. Remarks:This patient has a negative antinuclear antibody (MACIEL) screening test. This suggests that the patient likely does not have a systemic autoimmune rheumatic disease that is strongly associat ed with a positive MACIEL, such as systemic lupus erythematosus (MACIEL positive in ~95-100%), systemic sclerosis (MACIEL positive in ~60-80%), or the following disorders in which MACIEL positivity is part of the diagnostic criteria: drug- induced lupus, autoimmune hepatitis, or mixed connective tissue disease.However, the MACIEL may be negative in rare cases of systemic lupus erythematosus and systemic sclerosis. The MACIEL may also be negative in ~20% of patients presenting with autoimmune hepatitis. Additionally, MACIEL positivity is less sensitive in the diagnosis of Sjogren's syndrome (~40-70%) and dermatomyositis/polymyositis (~30- 80%). MACIEL is not useful for the diagnosis of rheumatoid arthritis, multiple sclerosis, idiopathic thrombocytopenic purpura, thyroid disease, discoid lupus, or fibromyalgia. (https://pubmed.ncbi.nlm.nih.gov/16651094/, https://pubmed.ncbi.nlm.nih.gov/66882621/) ? ? Therefore, a diagnosis cannot be based exclusively on MACIEL detection and/or pattern and thus should be made via t he integration of patient history, physical exam findings, and other diagnostic tests as clinicallyindicated. Kathleen Ho MD ?12/22/2021 ?5:44 PMUTMB LABORAT[facility] SERVICESUnUT [facility] TylerIRON [id number] 19:45:22* Test Item Value Reference Range Interpretation Comme nts IRON (test code = 1891627700) 21 ug/dL 50-160 L TIBC (test code = 9421638408) 269 ug/dL 250-410 % FE SAT (test code = 5924244742) 8 % 20-50 L Lab Interpretation (test cod e = 78294-5) Abnormal [facility] CenterANTI-NUCLEAR ANTIBODY [id number] 19:30:48* Test Item Value Reference Range Interpretation Comme nts MACIEL (test code = 9750986761) Negative Negative MARK ANTHONY (test code = MARK ANTHONY) Negative: ?No Anti-Nuclear Antibodies detected by IFA. Positive: ?MACIEL IFA screen performed with a 1:80 dilution in adults and a 1:40 dilution in pediatrics. ?A titer is performed and reported separately when the MACIEL is "Positive" or when "Cytoplasmic staining is observed." Lab Interpretation (test code = 89914-9) Normal [facility] CenterHEPAT[facility] FUNCTION PAN[facility] (65[address]) (ALB,T.PRO,BILI T,BU/BC,ALT,AST,ALK PHOS)2021-12-22 17:12:15* Test Item Value Reference Range Interpretation Comme nts TOTAL BILI (test code = 3312202949) 0.2 mg/dL 0.1-1.1 BILI UNCON (test code = 5790569698) 0.1 mg/dL 0.1-1.1 BILI CONJ (test code = 7508699895) 0.0 mg/dL 0.0-0.3 T PROTEIN (test code = 0351720589) 5.3 g/dL 6.3-8.2 L ALBUMIN (test code = 2729914826) 3.1 g/dL 3.5-5.0 L ALK PHOS (test code = 5043548659) 54 U/L 34-122 ALTv (test code = 1742-6) 451 U/L 5-50 H AST(SGOT) (test code = 7016719401) 446 U/L 13-40 H Lab Interpretation (test cod e = 61126-9) Abnormal [facility] CenterHEPAT[facility]IS [facility] VIR[facility] (HCV) BY QUANTITATIVE NAAT 2021-12-22 17:10:14* Test Item Value Reference Range Interpretation Comme nts HCV Quantitative NAAT - log IU/mL (test code = 05940-8) Not Detected log IU/mL HCV Quantitative NAAT - IU/mL (test code = 22965-4) Not Detected IU/mL HCV Quantitative Interpretation (test code = 4967750218) Detected Not Detected A MARK ANTHONY (test code = MARK ANTHONY) The Aptima HCV Jaspal nt Dx assay is an FDA-approved real-time auto garage mechanic-mediate d amplification (TMA) test used for both detection and quantitation of hepatitis C virus (HCV) RNA in human serum and plasma from HCV-infected individuals. ?It is intended for use as an aid in the diagnosis of active HCV infection and the management of HCV-infected patients undergoing HCV antiviral drug therapy. ?It is not approved for use as a screening test for the presence of HCV RNA in blood or blood products. The quantitative range of this assay is 1.00 - 8.00 log IU/mL or 10 - 100,000,000 IU/mL. An interpretation of "Not Detected" does not rule out the presence of inhibitors in the patient specimen or HCV RNA concentration below the level of detection of the test. ?Care should be taken when interpreting any single viral load determination. Detected, not Quantifiable: HCV RNA detected, but at a level below 10 IU/mL (1.0 log IU/mL). ?HCV RNA concentration is below the lower limit of quantitation of the assay. Indeterminate: Error indicated in the generation of the result. ?Please submit a new specimen for repeat testing if clinically indicated. Lab Interpretation (test code = 24985-5) [facility]normal [facility] CenterPO[facility] GLUCOSE (AUT[facility]ATED)2021-12-22 16:51:32* Test Item Value Reference Range Interpretation Comme nts POCT GLU (test code = 1392439623) 104 mg/dL 70-110 Lab Interpretation (test cod e = 77830-0) Normal [facility] CenterGALV ONLY - SYPHILIS [id number] 15:34:02* Test Item Value Reference Range Interpretation Comme nts Syphilis IgG/IgM (test code = 27076-0) Non-reactive Non-reactive MARK ANTHONY (test code = MARK ANTHONY) Non-reactive - No serologic evidence of T. pallidum infection. Cannot exclude incubating or early syphilis. Submit a second specimen in 2-4 weeks if syphilis is clinically suspected. Equivocal - Further testing to follow. Reactive - Further testing to follow. Lab Interpretation (test code = 85079-4) Normal [facility] CenterGLYCOSYLATED HEMOGLOBIN (A1C)2021-12-22 10:32:01* Test Item Value Reference Range Interpretation Comme [facility] HGB A1C (test code = 4548-4) 5.4 % 4.0-5.7 MARK ANTHONY (test code = MARK ANTHONY) Reference RangesNormal: <5.7%Prediabetes: 5.7 - 6.4%Diabetes: > 6.5% Lab Interpretation (test code = 09749-5) Normal [facility] CenterCREATINE [id number] 10:01:28* Test Item Value Reference Range Interpretation Comme nts CK (test code = 0032386111) 7061 U/L 33-194 H Lab Interpretation (test cod e = 42735-4) Abnormal [facility] CenterBASIC METABOLIC PANEL (NA, K, CL, CO2, GLUCOSE, BUN, CREATININE, CA)2021-12-22 09:00:46* Test Item Value Reference Range Interpretation Comme nts NA (test code = 8711689217) 137 mmol/L 135-145 K (test code = 0436049090) 3.7 mmol/L 3.5-5.0 CL (test code = 6488616370) 110 mmol/L 98-108 H CO2 TOTAL (test code = 5065657876) 26 mmol/L 23-31 AGAP (test code = 7754365164) 2-16 L BUN (test code = 4891466979) 12 mg/dL 7-23 GLUCOSE (test code = 7789076637) 107 mg/dL 70-110 CREATININE (test code = 6105972289) 0.63 mg/dL 0.60-1.25 CALCIUM (test code = 8793926894) 7.1 mg/dL 8.6-10.6 L eGFR (test code = 6931236764) mL/min/1.73m2 MARK ANTHONY (test code = MARK ANTHONY) Association of Glomerular Filtration Rate (GFR) and Staging of Kidney Disease* + --+ --+ ------+| GFR (mL/min/1.73 m2) ?| With Kidney Damage ?| ?Without Kidney Damage+ --------+ --------+ +| ?>90 ?| ?Stage one ?| ? Normal ?+ ---+ ---+ -------+| ?60-89 ?| ?Stage two ?| ? Decreased GFR ? + --+ --+ ------+| ?30-59 ?| ?Stage three ?| ? Stage three ? + --+ --+ ------+| ?15-29 ?| ?Stage four ? | ? Stage four ?+ ---+ ---+ -------+| ?<15 (or dialysis) ? ?| ?Stage five ? | ? Stage five ?+ ---+ ---+ -------+ *Each stage assumes the associated GFR level has been in effect for at least three months. ?Stages 1 to 5, with or without kidney disease, indicate chronic kidney disease. Notes: Determination of stages one and two (with eGFR >59mL/min/1.73 m2) requires estimation of kidney damage for at least three months as defined by structural or functional abnormalities of the kidney, manifested by either:Pathological abnormalities or Markers of kidney damage (including abnormalities in the composition of the blood or urine or abnormalities in imaging tests). Lab Interpretation (test code = 73426-8) [facility] Test Item Value Reference Range Interpretation Comme nts MAGNESIUM (test code = 6234690836) 2.0 mg/dL 1.7-2.4 Lab Interpretation (test cod e = 61196-0) [facility]* Test Item Value Reference Range Interpretation Comme nts PHOSPHORUS (test code = 7635555392) 1.3 mg/dL 2.5-5.0 L Lab Interpretation (test cod e = 28759-5) [facility] [id number] 08:21:46* Test Item Value Reference Range Interpretation Comme nts WBC (test code = 6690-2) See_Comment H [Automated messa ge] The system which generated this result transmitted reference range: 4.20 - 10.70 10*3/?L. The reference range was not used to interpret this result as normal/abnormal. RBC (test code = 789-8) See_Comment L [Automated messa ge] The system which generated this result transmitted reference range: 4.26 - 5.52 10*6/?L. The reference range was not used to interpret this result as normal/abnormal. HGB (test code = 718-7) 11.0 g/dL 12.2-16.4 L HCT (test code = 4544-3) 33.6 % 38.4-49.3 L MCV (test code = 787-2) 94.1 fL 81.7-95.6 MCH (test code = 785-6) 30.8 pg 26.1-32.7 MCHC (test code = 786-4) 32.7 g/dL 31.2-35.0 RDW-SD (test code = 47594-1) 44.2 fL 38.5-51.6 RDW-CV (test code = 788-0) 12.9 % 12.1-15.4 PLT (test code = 777-3) See_Comment [Automated messa ge] The system which generated this result transmitted reference range: 150 - 328 10*3/?L. The reference range was not used to interpret this result as normal/abnormal. MPV (test code = 86486-8) 10.2 fL 9.8-13.0 NRBC/100 WBC (test code = 3167033790) See_Comment [Automated me ssage] The system which generated this result transmitted reference range: 0.0 - 10.0 /100 WBCs. The reference range was not used to interpret this result as normal/abnormal. NRBC x10^3 (test code = 6884908091) See_Comment [Automated messa ge] The system which generated this result transmitted reference range: 10*3/?L. The reference range was not used to interpret this result as normal/abnormal. GRAN MAT (NEUT) % (test code = 770-8) 75.5 % IMM GRAN % (test code = 4282585156) 0.60 % LYMPH % (test code = 736-9) 13.9 % MONO % (test code = 5905-5) 9.4 % EOS % (test code = 713-8) 0.2 % BASO % (test code = 706-2) 0.4 % GRAN MAT x10^3(ANC) (test code = 2233882415) 8.61 10*3/uL 1.99-6.95 H IMM GRAN x10^3 (test code = 0269204221) 0.07 10*3/uL 0.00-0.06 H LYMPH x10^3 (test code = 731-0) 1.59 10*3/uL 1.09-3.23 MONO x10^3 (test code = 742-7) 1.07 10*3/uL 0.36-1.02 H EOS x10^3 (test code = 711-2) <0.03 0.06-0.53 L BASO x10^3 (test code = 704-7) 0.05 10*3/uL 0.01-0.09 Lab Interpretation (test code = 34839-8) Abnormal [facility] GLUCOSE (AUTOMATED)2021-12-22 05:55:02* Test Item Value Reference Range Interpretation Comme nts POCT GLU (test code = 1422168340) 83 mg/dL 70-110 Lab Interpretation (test cod e = 47502-2) Normal [facility] GLUCOSE (AUTOMATED)2021-12-21 22:21:28* Test Item Value Reference Range Interpretation Comme nts POCT GLU (test code = 3354399751) 80 mg/dL 70-110 Lab Interpretation (test cod e = 43250-8) [id number] 18:47:25* Test Item Value Reference Range Interpretation Comme nts CK (test code = 0762495296) 6144 U/L 33-194 H Lab Interpretation (test cod e = 19205-4) [facility] (NA, K, CL, CO2, GLUCOSE, BUN, CREATININE, CA)2021-12-21 17:53:43* Test Item Value Reference Range Interpretation Comme nts NA (test code = 6360643632) 139 mmol/L 135-145 K (test code = 0795103328) 4.0 mmol/L 3.5-5.0 CL (test code = 8404598141) 106 mmol/L 98-108 CO2 TOTAL (test code = 1359848895) 28 mmol/L 23-31 AGAP (test code = 7596047869) 2-16 BUN (test code = 6519640317) 18 mg/dL 7-23 GLUCOSE (test code = 7061670236) 79 mg/dL 70-110 CREATININE (test code = 8489129611) 0.80 mg/dL 0.60-1.25 CALCIUM (test code = 7083635506) 7.4 mg/dL 8.6-10.6 L eGFR (test code = 9645451091) mL/min/1.73m2 MARK ANTHONY (test code = MARK ANTHONY) Association of Glomerular Filtration Rate (GFR) and Staging of Kidney Disease* + --+ --+ ------+| GFR (mL/min/1.73 m2) ?| With Kidney Damage ?| ?Without Kidney Damage+ --------+ --------+ +| ?>90 ?| ?Stage one ?| ? Normal ?+ ---+ ---+ -------+| ?60-89 ?| ?Stage two ?| ? Decreased GFR ? + --+ --+ ------+| ?30-59 ?| ?Stage three ?| ? Stage three ? + --+ --+ ------+| ?15-29 ?| ?Stage four ? | ? Stage four ?+ ---+ ---+ -------+| ?<15 (or dialysis) ? ?| ?Stage five ? | ? Stage five ?+ ---+ ---+ -------+ *Each stage assumes the associated GFR level has been in effect for at least three months. ?Stages 1 to 5, with or without kidney disease, indicate chronic kidney disease. Notes: Determination of stages one and two (with eGFR >59mL/min/1.73 m2) requires estimation of kidney damage for at least three months as defined by structural or functional abnormalities of the kidney, manifested by either:Pathological abnormalities or Markers of kidney damage (including abnormalities in the composition of the blood or urine or abnormalities in imaging tests). Lab Interpretation (test code = 97378-9) [facility] 16:52:49* Test Item Value Reference Range Interpretation Comme [facility] POCT GLU (test code = 9069982155) 87 mg/dL 70-110 Lab Interpretation (test cod e = 03809-5) Normal [facility] 20 + LACTIC [id number] 14:01:35* Test Item Value Reference Range Interpretation Comme nts PH (test code = 2) 7.35-7.45 PCO2 (test code = 1673782069) See_Comment [Automated messa ge] The system which generated this result transmitted reference range: 35 - 45 mmHg. The reference range was not used to interpret this result as normal/abnormal. PO2 (test code = 7204181002) See_Comment L [Automated messa ge] The system which generated this result transmitted reference range: 80 - 100 mmHg. The reference range was not used to interpret this result as normal/abnormal. HCO3 (test code = 1206036080) See_Comment [Automated messa ge] The system which generated this result transmitted reference range: 22 - 26 mEq/L. The reference range was not used to interpret this result as normal/abnormal. BE (test code = 9800198567) See_Comment [Automated messa ge] The system which generated this result transmitted reference range: -3.0 - 3.0 mEq/L. The reference range was not used to interpret this result as normal/abnormal. THB (test code = 8664008306) 12.4 g/dL 13.5-18.0 L %O2HB (test code = 4581598038) 95.5 % 94.0-99.0 %COHB ART (test code = 9603170621) 0.1 % 0.0-1.5 %METHB ART (test code = 3084146404) 0.3 % 0.4-1.5 L VOL%O2 ART (test code = 9454349977) 16.7 % 15.0-23.0 NA (test code = 9064895392) 135 mmol/L 135-145 K+ (test code = 9060248629) 4.0 mmol/L 3.5-5.0 AC CA IONZ (test code = 8377768379) 4.30 mg/dL 4.50-5.30 L GLUCOSE (test code = 0640708858) 85 mg/dL 70-110 LACTIC ACID (test code = 5473973354) 0.82 mmol/L 0.50-2.20 Lab Interpretation (test code = 04283-3) [facility] 10:59:08* Test Item Value Reference Range Interpretation Comme [facility] POCT GLU (test code = 0008314622) 99 mg/dL 70-110 Lab Interpretation (test cod e = 63784-6) Normal [facility] CenterHEPATITIS B SURFACE [id number] 10:06:55* Test Item Value Reference Range Interpretation Comme nts HBsAB (test code = 3642163566) Negative HBsAb Semi-Quantitative (test code = 0980610181) mIU/mL MARK ANTHONY (test code = MARK ANTHONY) Interpretation: ?Hepatitis B Surface Antibody ? Negative - Patient is considered to be not immune to infection with HBV. ? ? Positive - Anti-HBs detected at greater than or equal to 12 mIU/mL. ?Patient is considered to be immune to infection with HBV. ? [facility] CenterHCV [id number] 09:58:14* Test Item Value Reference Range Interpretation Comme nts HCV Ab (test code = 80365-2) Positive HCV Semi-Quantitative (test code = 00477-8) APRI (test code = 7670780026) MARK ANTHONY (test code = MARK ANTHONY) Positive for HCV antibody. This specimen has been reflexed to qualitative PCR test and submitted to [facility]. ?A report will be issued by that laboratory. ?If any questions, contact the Clinical Chemistry Director guest relations coordinator at [phone].APRI score < 0.5: Suggestive of little to no fibrosisAPRI score > 1.5: Suggestive of moderate to severe fibrosisAPRI score > 2.0: Highly suggestive of cirrhosis. [facility] B SURFACE [id number] 09:49:32 * Test Item Value Reference Range Interpretation Comme nts HBsAg Semi-Quantitative (juliana t code = 5195-3) Negative Negative [facility]HIV 1/2 AG-AB WITH [id number] 09:02:10* Test Item Value Reference Range Interpretation Comme nts HIV Semi-quantitative (test code = 29693-6) Negative Negative MARK ANTHONY (test code = MARK ANTHONY) Non-reactive for HIV-1 antigen and HIV-1/HIV-2 antibodies. ?No laboratory evidence of HIV infection. ?Repeat in 2-4 weeks if acute HIV infection is suspected. [facility] B CORE ANTIBODY [id number] 08:47:31* Test Item Value Reference Range Interpretation Comme nts HBCM Semi-Quantitative (test code = 93270-3) Negative MARK ANTHONY (test code = MARK ANTHONY) Biotin has been reported to cause a negative bias, interpret results relative to patient's use of biotin. [facility] CenterFOLATE2022-[facility] 06:29:02* Test Item Value Reference Range Interpretation Comme nts FOLATE SER (test code = 8101455838) 12.3 ng/mL 3.0-20.0 Lab Interpretation (test cod e = 65302-2) Normal [facility] CenterVITAMIN B12, [id number] 06:18:23* Test Item Value Reference Range Interpretation Comme nts VIT B12 (test code = 4606948969) 782 pg/mL 240-930 MARK ANTHONY (test code = MARK ANTHONY) Biotin has been reported to cause a positive bias, interpret results relative to patient's use of biotin. Lab Interpretation (test code = 45138-0) Normal [facility] CenterSER DRUG (IMMUNOASSAY) - COMPREHENSIVE DRUG [id number] 05:31:37* Test Item Value Reference Range Interpretation Comme nts FRANCISCA S (test code = 7609339951) Negative Negative BENZO S (test code = 2070750424) Negative Negative TRICYCLIC (test code = 1622353896) Negative Negative MARK ANTHONY (test code = MARK ANTHONY) Serum Drug Screen Cutoff Ranges Barbiturates ? ? - 3 mcg/mLBenzodiazepines ?- 50 ng/mLTCA ?- 300 ng/mL Test developed and characteristics determined by [facility] Laboratory Services. The results are to be used only for medical (i.e., treatment) purposes. Unconfirmed screening results must not be used for non-medical purposes (e.g., employment testing, legal testing). Lab Interpretation (test code = 19725-9) Normal [facility] CenterCREATINE [id number] 04:33:45* Test Item Value Reference Range Interpretation Comme nts CK (test code = 7263913128) 9139 U/L 33-194 H Lab Interpretation (test cod e = 01551-2) [facility]normal [facility]PO[facility])2021-12-21 04:25:22* Test Item Value Reference Range Interpretation Comme nts POCT GLU (test code = 5104283556) 107 mg/dL 70-110 Lab Interpretation (test cod e = 84415-9) Normal [facility] CenterFERRITIN [id number] 04:04:35* Test Item Value Reference Range Interpretation Comme nts FERRITIN (test code = 8971332900) 285.0 ng/mL 18.0-464.0 MARK ANTHONY (test code = MARK ANTHONY) Biotin has been reported to cause a negative bias, interpret results relative to patient's use of biotin. Lab Interpretation (test code = 98336-4) Normal [facility] CenterCBC with [id number] 03:34:35* Test Item Value Reference Range Interpretation Comme nts WBC (test code = 6690-2) See_Comment H [Automated message] The system which generated this result transmitted reference range: 4.20 - 10.70 10*3/?L. The reference range was not used to interpret this result as normal/abnormal. RBC (test code = 789-8) See_Comment [Automated message] The system which generated this result transmitted reference range: 4.26 - 5.52 10*6/?L. The reference range was not used to interpret this result as normal/abnormal. HGB (test code = 718-7) 13.2 g/dL 12.2-16.4 HCT (test code = 4544-3) 40.7 % 38.4-49.3 MCV (test code = 787-2) 93.3 fL 81.7-95.6 MCH (test code = 785-6) 30.3 pg 26.1-32.7 MCHC (test code = 786-4) 32.4 g/dL 31.2-35.0 RDW-SD (test code = 07761-1) 44.4 fL 38.5-51.6 RDW-CV (test code = 788-0) 13.1 % 12.1-15.4 PLT (test code = 777-3) See_Comment [Automated message] The system which generated this result transmitted reference range: 150 - 328 10*3/?L. The reference range was not used to interpret this result as normal/abnormal. MPV (test code = 96374-6) 9.9 fL 9.8-13.0 NRBC/100 WBC (test code = 0369117697) See_Comment [Automated message] The system which generated this result transmitted reference range: 0.0 - 10.0 /100 WBCs. The reference range was not used to interpret this result as normal/abnormal. NRBC x10^3 (test code = 4701816819) <0.01 See_Comment [Automated message] The system which generated this result transmitted reference range: 10*3/?L. The reference range was not used to interpret this result as normal/abnormal. GRAN MAT (NEUT) % (test code = 770-8) 81.0 % IMM GRAN % (test code = 6048779843) 0.60 % LYMPH % (test code = 736-9) 8.8 % MONO % (test code = 5905-5) 9.5 % EOS % (test code = 713-8) 0.0 % BASO % (test code = 706-2) 0.1 % GRAN MAT x10^3(ANC) (test code = 5467700482) 16.99 10*3/uL 1.99-6.95 H IMM GRAN x10^3 (test code = 7723474826) 0.12 10*3/uL 0.00-0.06 H LYMPH x10^3 (test code = 731-0) 1.84 10*3/uL 1.09-3.23 MONO x10^3 (test code = 742-7) 1.99 10*3/uL 0.36-1.02 H EOS x10^3 (test code = 711-2) <0.03 0.06-0.53 L BASO x10^3 (test code = 704-7) <0.03 0.01-0.09 Lab Interpretation (test code = 64322-3) [facility]normal [facility] CenterHepatic Function Panel (ALB, T.PRO, BILI T, BU/BC, ALT, AST, ALK, PHOS)2021-12-21 03:28:55* Test Item Value Reference Range Interpretation Comme nts TOTAL BILI (test code = 6295433081) 0.5 mg/dL 0.1-1.1 BILI UNCON (test code = 1622362327) 0.2 mg/dL 0.1-1.1 BILI CONJ (test code = 6964886681) 0.0 mg/dL 0.0-0.3 T PROTEIN (test code = 6108623618) 6.4 g/dL 6.3-8.2 ALBUMIN (test code = 4286271793) 3.8 g/dL 3.5-5.0 ALK PHOS (test code = 4431425640) 64 U/L 34-122 ALTv (test code = 1742-6) 284 U/L 5-50 H AST(SGOT) (test code = 0690027432) 477 U/L 13-40 H Lab Interpretation (test cod e = 32843-4) Abnormal [facility] CenterPhosphorus [id number] 03:28:55* Test Item Value Reference Range Interpretation Comme nts PHOSPHORUS (test code = 4141306783) 3.8 mg/dL 2.5-5.0 Lab Interpretation (test cod e = 40651-2) Normal [facility] CenterMagnesium [id number] 03:28:55* Test Item Value Reference Range Interpretation Comme nts MAGNESIUM (test code = 5481272545) 1.6 mg/dL 1.7-2.4 L Lab Interpretation (test cod e = 06607-0) Abnormal [facility] CenterBasic Metabolic Panel (NA, K, CL, CO2, Glucose, BUN, Creatinine, CA)2021-12-21 03:28:55* Test Item Value Reference Range Interpretation Comme nts NA (test code = 3042176996) 137 mmol/L 135-145 K (test code = 5319901019) 4.9 mmol/L 3.5-5.0 CL (test code = 6622554097) 106 mmol/L 98-108 CO2 TOTAL (test code = 2558167388) 25 mmol/L 23-31 AGAP (test code = 9689741015) 2-16 BUN (test code = 2655083527) 24 mg/dL 7-23 H GLUCOSE (test code = 0766482394) 111 mg/dL 70-110 H CREATININE (test code = 3792744771) 1.28 mg/dL 0.60-1.25 H CALCIUM (test code = 1667227481) 7.8 mg/dL 8.6-10.6 L eGFR (test code = 1586144980) mL/min/1.73m2 MARK ANTHONY (test code = MARK ANTHONY) Association of Glomerular Filtration Rate (GFR) and Staging of Kidney Disease* + --+ --+ ------+| GFR (mL/min/1.73 m2) ?| With Kidney Damage ?| ?Without Kidney Damage+ --------+ --------+ +| ?>90 ?| ?Stage one ?| ? Normal ?+ ---+ ---+ -------+| ?60-89 ?| ?Stage two ?| ? Decreased GFR ? + --+ --+ ------+| ?30-59 ?| ?Stage three ?| ? Stage three ? + --+ --+ ------+| ?15-29 ?| ?Stage four ? | ? Stage four ?+ ---+ ---+ -------+| ?<15 (or dialysis) ? ?| ?Stage five ? | ? Stage five ?+ ---+ ---+ -------+ *Each stage assumes the associated GFR level has been in effect for at least three months. ?Stages 1 to 5, with or without kidney disease, indicate chronic kidney disease. Notes: Determination of stages one and two (with eGFR >59mL/min/1.73 m2) requires estimation of kidney damage for at least three months as defined by structural or functional abnormalities of the kidney, manifested by either:Pathological abnormalities or Markers of kidney damage (including abnormalities in the composition of the blood or urine or abnormalities in imaging tests). Lab Interpretation (test code = 33876-7) Abnormal [facility] CenterLactate [id number] 03:26:34* Test Item Value Reference Range Interpretation Comme [facility] LDH (test code = 7334996428) 2014 U/L 300-600 H Lab Interpretation (test cod e = 73204-9) Abnormal [facility] CenterProthrombin Time / [id number] 03:14:12* Test Item Value Reference Range Interpretation Comme [facility] PROTIME PATIENT (test code = 5964-2) See_Comment [Automated EarDish] The system which generated this result transmitted reference range: 10.1 - 12.6 Seconds. The reference range was not used to interpret this result as normal/abnormal. INR (test code = 6301-6) Normal INR <1.1; Warfarin Therapeutic range 2.0 to 3.0 or 2.5 to 3.5, depending upon the indications. Lab Interpretation (test code = 41790-0) Normal [facility] CenteraPTT2022-04-17 03:14:12* Test Item Value Reference Range Interpretation Comme [facility] APTT Patient (test code = 3173-2) See_Comment [Automated EarDish] The system which generated this result transmitted reference range: 26 - 36 Seconds. The reference range was not used to interpret this result as normal/abnormal. Lab Interpretation (test code = 69797-5) Normal [facility]
[2025-05-02] MEDS ORDERED: ONDANSETRON 4 MG/2 ML VIAL ONE (18:13)
[2025-05-02] MEDS ORDERED: MORPHINE 4 MG/ML SYR ONE (18:13)
[2025-05-02] MEDS ORDERED: KETOROLAC 30 MG/ML INJ ONE (18:13)
[2025-05-02] MEDS ORDERED: NA CHLORIDE 0.9% 1,000 ML ONE (18:14)
[2025-05-02 18:22] LABS: Absolute Lymphocytes (CBC) 2.6 K/uL (0.7-4.9); Hematocrit 49.0 % (39.6-49.0); Hemoglobin 16.3 g/dL (13.6-17.9); MCH 30.7 pg (27.0-35.0); MCHC 33.2 g/dL (32.0-36.0); MCV 92.5 fL (80-100); MPV 7.8 fL (7.6-11.3); Nucleated RBC Absolute Count 0.0 (0-0); Nucleated Red Blood Cells % 0.2 % (0-0); RBC Red Blood Cell Count 5.30 M/uL (4.33-5.43); White Blood Count 11.70 thou/uL (4.3-10.9)
[2025-05-02 18:37] LABS: ALT/SGPT 83.0 U/L (16-61); AST/SGOT 39.0 U/L (15-37); Albumin 4.0 g/dL (3.4-5.0); Albumin/Globulin Ratio 1.1 (1.1-1.8); Alkaline Phosphatase 109.0 U/L (45-117); Anion Gap 9.4 mEq/L (5.0-15.0); BUN Blood Urea Nitrogen 18.0 mg/dL (7-18); Globulin 3.8 g/dL (2.3-3.5); Glucose Level 102.0 mg/dL (74-106); Potassium 4.4 mEq/L (3.5-5.1)
--- NOTE | 2025-05-02 18:46 | RAD REPORT ---
EXAMINATION: Stone Protocol CLINICAL INDICATION: Abdominal pain. Flank pain TECHNIQUE: CT abdomen and pelvis was performed, without IV contrast, as per department protocol. Oral contrast not given. Axial, sagittal and coronal reconstructions were obtained. One or more of the following dose reduction techniques were used: Automated exposure control, adjustment of the mA and k V according to the patient size, and iterative reconstruction. Unless otherwise specified, incidental findings do not require dedicated imaging follow-up. COMPARISON: No prior exam. FINDINGS: The lack of intravenous and oral contrast limits the sensitivity of this exam for evaluation of solid visceral organs, vascular structures, and bowel A renal calculus not seen. No ureteral calculus. A bladder calculus not noted. No hydronephrosis 9 mm low-density lesion right lobe liver. The spleen, pancreas and adrenals grossly normal. Multiple, small bilateral renal calculi. No hydronephrosis. A ureteral calculus not seen. No bladder calculus. Prostatic calcifications. Normal appendix. Mild posterior subluxation L5 on S1. Spondylolysis L5. No evidence of diverticulitis. IMPRESSION: Nonobstructing bilateral renal calculi 9 mm low-density lesions liver nonspecific but most likely benign. Follow-up liver ultrasound in [facility] recommended. Moderate to large amount of stool throughout the colon.
[2025-05-02 18:49] LABS: Sqamous Epithelial <5 /HPF (None Seen); Urine Culture Reflex Order NOT NEEDED; Urine Microscopic Reflex YN ORDER UMIC
--- NOTE | 2025-05-02 19:20 | EDPHYS ---
Physician Documentation [facility] Name: Suman Cee Age: 39 yrs Sex: Male : 1985 Arrival Date: 05/02/2025 Time: 17:20 Bed 14 Private MD: NITA Physician Bryce Somers HPI: 05/02 19:17 This 39 yrs old Male presents to ER via Wheelchair with complaints of Abdominal Pain, kb Back Pain. 19:17 Pt is a 39 year old male who presents for left lower back pain that radiates down left kb leg. States pain started a couple of days ago after twisting. denies urinary symptoms, n/v/d, fever. . Historical: - Allergies: 17:49 No Known Allergies; iw - Home Meds: 17:49 None [Active]; iw - PMHx: 17:49 None; iw - PSHx: 17:49 abdominal sx as an ; iw - Immunization history:: Adult Immunizations not up to date. - Infectious Disease History:: Denies. - Social history:: Smoking status: . ROS: 19:16 Constitutional: As per HPI kb Exam: 19:16 Constitutional: This is a well developed, well nourished patient who is awake, alert, kb and in no acute distress. Head/Face: Normocephalic, atraumatic. ENT: Moist Mucous membranes Cardiovascular: Regular rate Respiratory: Respirations even and unlabored. No increased work of breathing. Talking in full sentences Abdomen/GI: Soft, non-tender. No distention Skin: Warm, dry with normal turgor. Normal color. MS/ Extremity: Pulses equal, no cyanosis. Neurovascular intact. Full, normal range of motion. Neuro: Awake and alert, GCS 15, oriented to person, place, time, and situation. 19:16 Back: pain, that is moderate, of the left low back, ROM is painful, normal spinal alignment noted, Vital Signs: 17:48 BP 141 / 109; Pulse 92; Resp 18; Temp 98.2; Pulse Ox 100% on R/A; Weight 72.57 kg; iw Height 5 ft. 9 in. ; Pain 10/10; 18:00 BP 140 / 98; Pulse 78; Resp 16; Pulse Ox 95% ; me1 19:00 BP 153 / 92; Pulse 70; Resp 16; Pulse Ox 94% ; me1 19:27 Pain 6/10; me1 17:48 Body Mass Index 23.63 (72.57 kg, 175.26 cm) iw 17:48 Pain Scale: Adult iw 19:27 Pain Scale: Adult me1 MDM: 17:25 Medical Screening Exam initiated kb 19:18 Differential diagnosis: sciatica, uti, kidney stone. Data reviewed: vital signs, nurses kb notes. Historians other than the Patient: Parent: father. Counseling: I had a detailed discussion with the patient and/or guardian regarding the historical points, exam findings, and any diagnostic results supporting the discharge/admit diagnosis, lab results, radiology results, the need for outpatient follow up, a family practitioner, to return to the emergency department if symptoms worsen or persist or if there are any questions or concerns that arise at home. 05/02 17:36 Order name: CBC with Diff; Complete Time: 18:39 iw 05/02 17:36 Order name: CMP; Complete Time: 18:39 iw 05/02 17:36 Order name: UA Rfx Mario Cult if indicated; Complete Time: 19:02 iw 05/02 17:36 Order name: CT Stone Protocol; Complete Time: 19:02 iw 05/02 17:36 Order name: IV Saline Lock; Complete Time: 18:19 iw 05/02 17:36 Order name: Labs collected and sent; Complete Time: 18:19 iw Administered Medications: 18:18 Drug: NS 0.9% IV 1000 ml IV at 1 bolus Per protocol; to be given as a bolus over 60 me1 minutes Route: IV; Rate: 1 bolus; Site: right antecubital; 19:28 Follow up: Response: No adverse reaction; IV Status: Completed infusion; IV Intake: me1 1000ml 18:19 Drug: TORadol - Ketorolac IVP 15 mg IVP once Route: IVP; Site: right antecubital; me1 19:27 Follow up: Pain 6/10 Adult; Response: No adverse reaction; Pain is decreased me1 18:19 Drug: Ondansetron IVP 4 mg IVP once; over 2 minutes Route: IVP; Site: right antecubital;me1 19:27 Follow up: Response: No adverse reaction; Nausea is decreased me1 18:19 Drug: morphine IVP or IV 4 mg IVP once over 4 mins Route: IVP; Infused Over: 4 mins; me1 Site: right antecubital; 19:27 Follow up: Response: No adverse reaction; Pain is decreased me1 19:27 Drug: Decadron - Dexamethasone IVP 10 mg IVP once Route: IVP; Site: right antecubital; me1 19:30 Follow up: Response: No adverse reaction me1 Disposition Summary: 05/02/25 19:19 Discharge Ordered Notes: Location: Home kb Condition: Stable kb Diagnosis - Sciatica, left side kb Followup: kb - With: Emergency Department - When: As needed - Reason: Worsening of condition Followup: kb - With: Private Physician - When: 2 - 3 days - Reason: Recheck today's complaints, Continuance of care, Re-evaluation by your physician Discharge Instructions: - Discharge Summary Sheet kb - Sciatica, Igio-bv-Ollv kb Forms: - Medication Reconciliation Form kb - Antibiotic Education kb - Prescription Opioid Use kb - Patient Portal Instructions kb - Leadership Thank You Letter kb Prescriptions: - Prednisone 20 mg Oral Tablet - take 1 tablet ORAL route once daily for 5 days; 5 tablet; Refills: 0, Product kb Selection Permitted - Diclofenac Sodium 75 mg Oral tablet, delayed release (enteric coated) - take 1 tablet ORAL route 2 times per day As needed; 30 tablet; Refills: 0, kb Product Selection Permitted - orphenadrine citrate 100 mg Oral Tablet Sustained Release - take 1 tablet ORAL route 2 times per day As needed; 20 tablet; Refills: 0, kb Product Selection Permitted Signatures: Dispatcher [employer] Vandana Gilliam, ELYSSA-C [employer]-Ckb Patience Clark RN RN Rita Orantes RN RN me1 Corrections: (The following items were deleted from the chart) 17:37 17:37 Stone Protocol+CT.RAD.BRZ ordered. ANDREIA BOSWELL
--- NOTE | 2025-05-02 19:20 | ER ---
Nurse's Notes [facility] Name: Suman Cee Age: 39 yrs Sex: Male : 1985 Arrival Date: 05/02/2025 Time: 17:20 Bed 14 Private MD: Diagnosis: Sciatica, left side Presentation: 05/02 17:48 Chief complaint: Patient states: left flank pain X 4-5 days, denies urinary s/s. iw Coronavirus screen: At this time, the client does not indicate any symptoms associated with coronavirus-19. Ebola Screen: No symptoms or risks identified at this time. Risk Assessment: Do you want to hurt yourself or someone else? Patient reports no desire to harm self or others. 17:48 Method Of Arrival: Wheelchair iw 17:48 Acuity: MIKEY 3 iw 18:26 Initial Sepsis Screen: Does the patient meet any 2 criteria? HR > 90 bpm. Does the me1 patient have a suspected source of infection? No. Patient's initial sepsis screen is negative. Onset of symptoms was April 27, 2025. Triage Assessment: 18:26 General: Appears uncomfortable, Behavior is calm, cooperative, appropriate for age. me1 General: Reports left flank pain X 4-5 days, denies urinary s/s. Pain:. Pain: Complains of pain in left flank Pain radiates to left lower quadrant and left leg Pain currently is 10 out of 10 on a pain scale. Quality of pain is described as burning, sharp, shooting, Pain began 4-5 days ago. EENT: No signs and/or symptoms were reported regarding the EENT system. Neuro: Level of Consciousness is awake, alert, obeys commands, Oriented to person, place, time, situation, Appropriate for age. Cardiovascular: Patient's skin is warm and dry. Respiratory: Airway is patent Respiratory effort is even, unlabored, Respiratory pattern is regular, symmetrical. GI: Abdomen is non-distended, Reports lower abdominal pain. : Denies burning with urination, urinary frequency. : Reports pain in left flank(s), lower quadrant(s). Derm: Skin is intact, is healthy with good turgor, Skin is normal. Musculoskeletal: Reports pain in left flank and left lower quadrant. Historical: - Allergies: 17:49 No Known Allergies; iw - Home Meds: 17:49 None [Active]; iw - PMHx: 17:49 None; iw - PSHx: 17:49 abdominal sx as an infant; iw - Immunization history:: Adult Immunizations not up to date. - Infectious Disease History:: Denies. - Social history:: Smoking status: . Screenin:29 [facility] ED Fall Risk Assessment (Adult) History of falling in the last 3 months, me1 including since admission No falls in past 3 months (0 pts) Confusion or Disorientation No (0 pts) Intoxicated or Sedated No (0 pts) Impaired Gait No (0 pts) Mobility Assist Device Used No (0 pt) Altered Elimination No (0 pt) Score/Fall Risk Level 0 - 2 = Low Risk Maintained a safe environment, Provided non-skid footwear, Hourly rounding (assess needs \T\ fall precautionary measures) done. Abuse screen: Denies threats or abuse. Nutritional screening: No deficits noted. Tuberculosis screening: No symptoms or risk factors identified. Assessment: 18:29 Reassessment: See triage assessment. me1 19:46 GI: Bowel sounds present X 4 quads. Abd is soft X 4 quads. me1 Vital Signs: 17:48 BP 141 / 109; Pulse 92; Resp 18; Temp 98.2; Pulse Ox 100% on R/A; Weight 72.57 kg; iw Height 5 ft. 9 in. ; Pain 10/10; 18:00 BP 140 / 98; Pulse 78; Resp 16; Pulse Ox 95% ; me1 19:00 BP 153 / 92; Pulse 70; Resp 16; Pulse Ox 94% ; me1 19:27 Pain 6/10; me1 17:48 Body Mass Index 23.63 (72.57 kg, 175.26 cm) iw 17:48 Pain Scale: Adult iw 19:27 Pain Scale: Adult or1 ED Course: 17:21 Patient arrived in ED. mr 17:24 Vandana Barreto FNP-C is PHCP. kb 17:24 Bryce Somers MD is Attending Physician. kb 17:49 Triage completed. iw 17:49 Arm band placed on right wrist. iw 17:50 CT Stone Protocol In Process Unspecified. EDMS 18:03 Rita Orantes, SEGUN is Primary Nurse. me1 18:18 Initial lab(s) drawn, by me, sent to lab. Urine collected: clean catch specimen, clear. me1 Inserted saline lock: 20 gauge in right antecubital area, using aseptic technique. 18:19 UA Rfx Mario Cult if indicated Sent. me1 18:29 Patient has correct armband on for positive identification. Bed in low position. Call me1 light in reach. Side rails up X 1. Provided Education on: POC. Verbalized understanding.. Client placed on continuous cardiac and pulse oximetry monitoring. NIBP monitoring applied. Pulse ox on. NIBP on. 18:29 No provider procedures requiring assistance completed. me1 19:46 IV discontinued, intact, bleeding controlled, No redness/swelling at site. Pressure me1 dressing applied. Administered Medications: 18:18 Drug: NS 0.9% IV 1000 ml IV at 1 bolus Per protocol; to be given as a bolus over 60 me1 minutes Route: IV; Rate: 1 bolus; Site: right antecubital; 19:28 Follow up: Response: No adverse reaction; IV Status: Completed infusion; IV Intake: me1 1000ml 18:19 Drug: TORadol - Ketorolac IVP 15 mg IVP once Route: IVP; Site: right antecubital; me1 19:27 Follow up: Pain 6/10 Adult; Response: No adverse reaction; Pain is decreased me1 18:19 Drug: Ondansetron IVP 4 mg IVP once; over 2 minutes Route: IVP; Site: right antecubital;me1 19:27 Follow up: Response: No adverse reaction; Nausea is decreased me1 18:19 Drug: morphine IVP or IV 4 mg IVP once over 4 mins Route: IVP; Infused Over: 4 mins; me1 Site: right antecubital; 19:27 Follow up: Response: No adverse reaction; Pain is decreased me1 19:27 Drug: Decadron - Dexamethasone IVP 10 mg IVP once Route: IVP; Site: right antecubital; me1 19:30 Follow up: Response: No adverse reaction me1 Medication: 18:29 VIS not applicable for this client. me1 Intake: 19:28 IV: 1000ml; Total: 1000ml. me1 Outcome: 19:19 Discharge ordered by MD. norton 19:46 Discharged to home ambulatory, with family, me1 19:46 Condition: stable 19:46 Discharge instructions given to patient, Instructed on discharge instructions, follow up and referral plans. medication usage, Demonstrated understanding of instructions, follow-up care, medications, Prescriptions given X 3, 19:49 Patient left the ED. me1 Signatures: Dispatcher [employer] EDMS Vandana Barreto, CALL OR CONTACT CENTRE OPERATOR-C CALL OR CONTACT CENTRE OPERATOR-CkMicaela Villarreal, Reg Reg mr Patience Clark, RN RN iw Rita Orantes RN RN me1 Corrections: (The following items were deleted from the chart) 18:26 17:48 Chief complaint: Patient states: left flank pain X 4-5 days, denies urinary s/s iwme1
[2025-05-03 01:31] VITALS: TEMP 98.2
[2025-05-03 01:45] VITALS: BP 153/92; O2SAT 94
== END 2025-05-02 19:49 | disposition home or self-care (01) ==
LOC: ER 17:20
DX: M54.32 Sciatica, left side (principal)
CPT/HCPCS: 36415; 74176; 76377; 80053; 81001; 85025; J1100; J2405; J7030